=== PATIENT | male | born 1975 | race Caucasian/White ===

== ENCOUNTER 2023-11-08 22:27 | Inpatient (IN) ==
--- OUTSIDE RECORDS SUMMARY | 2023-11-08 22:30 | External Medical Summary | Summary of Care ---
Author Name Unknown Organization [facility] Address [address] [place] [address] Phone [phone] Care Team Providers Care Chip Drier Name Role Phone Ricki Loya MD Primary Care Provider + [phone] Reason for Visit * Reason Comments eRx-Medication Refill Encounter Details Date Type Department Care Team (Late st Contact Info) Description 10/06/2023 Refill Family Medicine [address] [id number] Ricki Loya MD [address] [place] [address] [place] [id number] Moderate persistent asthma without complication Allergies Active Allergy Reactions Criticality Noted Date Comments Tamsulosin Hcl 11/12/2016 Dizziness, headache,itching documented as of this encounter (statuses as of 10/08/2023) Medications Medication Sig Dispensed Refills Start Date End Date Status Albuterol Sulfate HFA 108 (90 Base) MCG/ACT Inhalation Aerosol SolutionIndications :Moderate persistent asthma without complication Inhale 2 Puffs by mouth every 4 hours as needed for Wheezing. 18 g 5 09/12/2022 Active LORazepam 1 MG Oral Tablet (Ativan) Take one tablet by mouth thirty minutes prior to MRI. 1 Tablet 0 03/12/2023 Active Symbicort 160-4.5 MCG/ACT Inhalation Aerosol (Budesonide-Formote rol)Indications:Mod erate persistent asthma without complication inhale 2 puffs by mouth in the morning and before bedtime. 10.2 g 5 10/08/2023 Active Symbicort 160-4.5 MCG/ACT Inhalation Aerosol (Budesonide-Formote rol)Indications:Mod erate persistent asthma without complication INHALE TWO PUFFS BY MOUTH IN THE MORNING and before bedtime 10.2 g 5 04/11/2023 10/08/2023 Discontinued Hospital, Clinic, or Other Facility Administered Medication Ordered Dose Route Frequency Start Date End Date Status albuterol sulfate (PROVENTIL) (2.5 MG/3ML) 0.083% inhalation solution 2.5 mgIndications:Moderate persistent asthma without complication 2.5 mg NEBULIZER Q4H PRN 09/15/2017 Active documented as of this encounter (statuses as of 10/08/2023) Active Problems Problem Noted Date Diagnosed Date Tobacco use disorder 09/07/2020 Moderate persistent asthma without complication 03/19/2016 BPH without obstruction/lower urinary tract symp toms documented as of this encounter (statuses as of 10/08/2023) Resolved Problems Problem Noted Date Diagnosed Date Resolved Date Moderate persistent asthma 0 03/19/2016 documented as of this encounter (statuses as of 10/08/2023) Immunizations Name Administration Dates Next Due TDAP (age 10 and older)(Boostrix) 12/04/2015 documented as of this encounter Social History Tobacco Use Types Packs/Day Years Used Date Smoking Tobacco: Every Day Cigarettes 1 32.7 Started: 1991 Smokeless Tobacco: Never Comments:Has cut back to 1/4 to 1/2 ppd Alcohol Use Standard Drinks/Week Comments No 0 (1 standard drink = 0.6 oz pur e alcohol) PHQ-2 Answer Date Recorded PHQ-2 Score -1 04/24/2020 Sex and Gender Information Value Date Recorded Sex Assigned at Not on file Gender Identity Not on file Sexual Orientation Not on file Job Start Date Occupation Industry Not on file Not on file Not on file documented as of this encounter Miscellaneous Notes * Telephone Encounter - Dino Zuleta RPh - 10/08/2023 10:06 AM ESTSigned Prescriptions: Disp Refills Symbicort 160-4.5 MCG/ACT Inhalation Aeros*10.2 g 5 Sig: inhale2 puffs by mouth in the morning and before bedtime.Authorizing Provider: RICKI LOYA User: DINO ZULETA documented in this encounter Plan of Treatment Health Maintenance Due Date Last Done Comments Pneumococcal Vaccine: Pediatrics (0 to 5 Years) and At-Risk Patients (6 to 64 Years) (1 of 2 - PCV) 1981 Hepatitis B (1 of 3 - 19+ 3-dose series) 1994 Cologuard 02/04/2020 Colonoscopy 02/04/2020 Colorectal Cancer Screening 02/04/2020 Fecal Occult Blood Test 02/04/2020 Sigmoidoscopy 02/04/2020 Depression Screening 08/27/2020 08/27/2019 DISCUSS TOBACCO CESSATION (REFER TO SMARTSET #3291) 09/07/2021 09/07/2020 COVID-19 Vaccine (1 - 2022-2 4 season) 2023 Influenza Vaccine (FLU shot) (#1) 2023 DTaP,Tdap,and Td Vaccines (2 - Td or Tdap) 12/03/2025 12/04/2015 Lipid Panel 09/11/2026 09/11/2021, 07/05/2016 GARDASIL-HPV IMMUNIZATION SERIES Aged Out No longer eligible b ased on patient's age to complete this topic MENINGOCOCCAL (MENACTRA/MENVEO) Aged Out No longer eligible b ased on patient's age to complete this topic documented as of this encounter Medical Devices Not on filedocumented as of this encounter Visit Diagnoses Diagnosis Moderate persistent asthma without complication Unspecified asthma documented in this encounter Care Teams Chip Drier Relationship Specialty Start Date End Date Ricki Loya MD [address] [place] [address] MARTY Carranza [phone] PCP - General Family Medicine 04/13/15 documented as of this encounter
--- NOTE | 2023-11-08 23:04 | Emergency Department Note ---
History of Present Illness General Chief complaint: Shortness of Breath/Dyspnea Stated complaint: TROUBLE BREATHING X9 DAYS Time Seen by Provider: 11/08/23 22:37 History of Present Illness Maximum Pain Intensity: 8 This is a 48-year-old male presenting to the emergency department for evaluation of breathing difficulty. Patient states that he has had a cough and shortness of breath for the past 8 or 9 days. He may have had a fever early on but nothing recently. He is having a large amount of left-sided chest wall pain. Patient has a history of asthma and uses tobacco products. His discomfort is rated 8/10. Patient does not typically go to the doctor. He does have some discomfort going into his left flank. No difficulty using the bathroom. Home Medications Medication Instructions Recorded Confirmed Type acetaminophen 500 mg tablet 1,000 mg PO DIRECTED PRN 11/08/23 11/08/23 History (Tylenol Extra Strength) PAIN/FEVER albuterol sulfate 90 mcg/actuation 2 puff inhalation DIRECTED PRN 11/08/23 11/08/23 History aerosol inhaler Shortness Of Breath Or Wheezing budesonide-formoterol HFA 160 1 inh inhalation QID 11/08/23 11/08/23 History mcg-4.5 mcg/actuation aerosol inhaler (Symbicort) ibuprofen 200 mg tablet (Advil) 600 mg PO DIRECTED PRN 11/08/23 11/08/23 History PAIN/FEVER Allergies Allergy/AdvReac Type Severity Reaction Status Date / Time No Known Allergies Allergy Verified 11/08/23 23:12 Past Med/Surg History Medical History Asthma Surgical History No pertinent past surgical history Social History Smoking Status: Heavy tobacco smoker Tobacco Type: Cigarettes Hx Alcohol Use: No Hx Substance Use: Yes (occasional social MJ use) Preferred Language: Belarusian Communication Ability: Effective Cash Application Clerk Required: No Beliefs That Will Affect Care: None Current Living Situation: Alone Current Living Situation Comment: House, 0 KEILA Feels Safe at Home: Yes Assistive Devices: None Review of Systems A total of 10 systems reviewed and were otherwise negative Physical Exam Vital Signs Vital Signs - 24 hr 11/08/23 22:31 11/08/23 22:39 11/08/23 23:00 Temperature 37.2 C Temperature Source Temporal Artery Scan Pulse Rate 101 H 94 H Respiratory Rate 18 20 Respiratory Effort / Characteristics Non-Labored Spontaneous Non-Labored Respiratory Depth Normal Normal Respiratory Pattern Regular Regular Blood Pressure 114/68 106/56 L Blood Pressure Mean 83 72 Pulse Oximetry 95 97 Oxygen Delivery Method Room Air Sepsis Recent Fever Within 48 Hours No Sepsis New/Unexplained Change in Mental Status N/A Sepsis Action Taken by Nursing No Action Required 11/08/23 23:02 11/08/23 23:23 11/09/23 00:23 Temperature Temperature Source Pulse Rate 98 H Respiratory Rate Respiratory Effort / Characteristics Respiratory Depth Respiratory Pattern Blood Pressure Blood Pressure Mean Pulse Oximetry 96 Oxygen Delivery Method Room Air Room Air Sepsis Recent Fever Within 48 Hours Sepsis New/Unexplained Change in Mental Status Sepsis Action Taken by Nursing 11/09/23 01:00 11/09/23 01:04 Temperature Temperature Source Pulse Rate 84 Respiratory Rate 18 Respiratory Effort / Characteristics Non-Labored Respiratory Depth Normal Respiratory Pattern Blood Pressure 121/74 Blood Pressure Mean 89 Pulse Oximetry 95 Oxygen Delivery Method Sepsis Recent Fever Within 48 Hours Sepsis New/Unexplained Change in Mental Status Sepsis Action Taken by Nursing VITALS: Vitals are noted on the nurse's note and reviewed by myself. Vital signs stable. GENERAL: Well-developed, well-nourished, white male, who is in no acute distress and resting comfortably. Patient is cooperative with the examination. HEAD: Normocephalic atraumatic. EARS: External ear normal. External auditory canals clear, tympanic membranes pearly sandoval without erythema or effusion bilaterally. EYES: Pupils equal round and reactive to light and accommodation. Conjunctivae without injection, sclerae without icterus. Extraocular movements intact. NOSE: Patent, turbinates without inflammation or discharge. MOUTH: Mucous membranes moist. Tonsils are not enlarged. Pharynx without erythema, blood, or exudate. Uvula midline. Airway patent. NECK: Supple without nuchal rigidity. No lymphadenopathy. No thyromegaly. Cervical spine is nontender. HEART: Regular rate and rhythm without murmurs gallops or rubs. LUNGS: Clear to auscultation bilaterally without wheezes, rales or rhonchi. No retractions or accessory muscle use. CHEST WALL: Reproducible tenderness along the left lateral chest wall. No appreciable rash. No flail segment. ABDOMEN: Positive normal bowel sounds x 4. Soft, nontender, without masses or organomegaly. No guarding or rebound tenderness. MUSCULOSKELETAL: No muscle atrophy, erythema, or edema noted. Full range of motion in all extremities. Course Administered Medications Doxycycline Hyclate (Doxycycline Hyclate 100 Mg Cap) 100 mg PO BID KELSEA Stop: 11/16/23 20:59 Last Admin: 11/09/23 21:12 Dose: 100 mg Documented By: W Fluticasone/Vilanterol (Fluticasone/Vilanterol 100/25mcg 14 Puffs/Inhaler) 1 puffs INH DAILY KELSEA Stop: 12/09/23 08:59 Last Admin: 11/09/23 10:08 Dose: 1 puffs Documented By: JAYLAN Piperacillin Sod/Tazobactam (Sod 4.5 gm/ Dextrose) 100 mls @ 25 mls/hr IV Q8H KELSEA; Protocol Stop: 11/16/23 05:59 Last Admin: 11/09/23 21:11 Dose: 25 mls/hr Documented By: Infusion: 11/09/23 17:35 Dose: Infused Documented By: JAYLAN(2) Admin: 11/09/23 12:57 Dose: 25 mls/hr Documented By: Infusion: 11/09/23 10:29 Dose: Infused Documented By: Admin: 11/09/23 06:21 Dose: 25 mls/hr Documented By: ANABEL Alteplase, Recombinant 10 mg/ (Syringe) 60 mls @ 0.0006 mls/min IPL Q12H KELSEA; Protocol Stop: 11/12/23 07:59 Last Admin: 11/09/23 20:40 Dose: 0.0006 mls/min Documented By: YESY Co-signed By: DIA Admin: 11/09/23 10:10 Dose: 0.0006 mls/min Documented By: JAYLAN Co-signed By: ALEJANDRA Dornase Shai 5 ml/ Syringe 30 mls @ 0.0006 mls/min IPL Q12H KELSEA; Protocol Stop: 11/12/23 08:59 Last Admin: 11/09/23 08:45 Dose: 0.0006 mls/min Documented By: JAYLAN Morphine Sulfate (Morphine Sulfate 2 Mg/Ml Carp) 3 mg IV Q4H PRN PRN Reason: Severe Pain (Scale 7, 8, 9,10) Stop: 11/23/23 11:48 Last Admin: 11/09/23 20:13 Dose: 3 mg Documented By: YESY Oxycodone HCl (Oxycodone Hcl Ir 5 Mg Tab (Immediate Release)) 5 mg PO Q4H PRN PRN Reason: moderate to severe pain Stop: 11/23/23 11:48 Last Admin: 11/09/23 16:57 Dose: 5 mg Documented By: [place] Admin: 11/09/23 12:04 Dose: 5 mg Documented By: JAYLAN Tramadol HCl (Tramadol Hcl 50 Mg Tablet) 50 mg PO Q4H PRN PRN Reason: Moderate Pain (Scale 4, 5, 6) Stop: 12/09/23 11:47 Last Admin: 11/09/23 16:57 Dose: 50 mg Documented By: [place] Discontinued Medications Enoxaparin Sodium (Enoxaparin Inj 30 Mg/0.3 Ml Syr) [facility] [place] Stop: 12/09/23 08:59 Last Admin: 11/09/23 10:09 Dose: 30 mg Documented By: JAYLAN Vancomycin HCl 1,000 mg/ (Sodium Chloride) 520 mls @ 200 mls/hr IV NOW ONE Stop: 11/09/23 02:21 Last Infusion: 11/09/23 04:12 Dose: Infused Documented By: Infusion: 11/09/23 02:18 Dose: 0 mls/hr Documented By: Admin: 11/09/23 01:32 Dose: 200 mls/hr Documented By: GAYLA Piperacillin Sod/Tazobactam Sod (Zosyn) 4.5 gm in 100 mls @ 200 mls/hr IV NOW ONE Stop: 11/09/23 00:15 Last Infusion: 11/09/23 01:40 Dose: Infused Documented By: Admin: 11/09/23 00:58 Dose: 200 mls/hr Documented By: GAYLA Sodium Chloride (Nss) 1,000 mls @ 999 mls/hr IV .Q1H1M [facility] Stop: 11/09/23 00:45 Last Infusion: 11/09/23 02:19 Dose: Infused Documented By: Admin: 11/09/23 01:01 Dose: 999 mls/hr Documented By: GAYLA Acetaminophen (Ofirmev) 1,000 mg in 100 mls @ 400 mls/hr IV NOW STA Stop: 11/09/23 01:09 Last Infusion: 11/09/23 02:17 Dose: Infused Documented By: Admin: 11/09/23 01:38 Dose: 400 mls/hr Documented By: GAYLA Doxycycline Hyclate 100 mg/ (Dextrose) 100 mls @ 50 mls/hr IV NOW STA Stop: 11/09/23 03:34 Last Infusion: 11/09/23 05:26 Dose: Infused Documented By: Admin: 11/09/23 02:20 Dose: 50 mls/hr Documented By: GAYLA Potassium Chloride/Sodium Chloride (Normal Saline W/20 Meq Kcl) 20 meq in 1,000 mls @ 60 mls/hr IV .[id number] STA; Protocol Stop: 11/09/23 18:47 Last Infusion: 11/09/23 17:36 Dose: Infused Documented By: JAYLAN(2) Admin: 11/09/23 02:49 Dose: 60 mls/hr Documented By: GAYLA Ioversol (Optiray 320 125ml) 119 ml IV ONCE ONE Stop: 11/09/23 00:40 Last Admin: 11/09/23 00:39 Dose: 119 ml Documented By: TUNDE Ipratropium [place] (Ipratropium [place] Neb Soln 0.02% 0.5mg/2.5ml Vial) 0.5 mg INH NOW STA Stop: 11/09/23 02:07 Last Admin: 11/09/23 03:24 Dose: 0.5 mg Documented By: DEBI Ketorolac Tromethamine (Ketorolac 30 Mg/Ml Vial) Confirm Administered Dose 30 mg .ROUTE .STK-MED ONE Stop: 11/09/23 07:00 Last Admin: 11/09/23 07:05 Dose: 30 mg Documented By: ALEJANDRA Levalbuterol HCl (Levalbuterol 1.25 Mg/3 Ml Neb) 1.25 mg NEB NOW STA Stop: 11/09/23 02:07 Last Admin: 11/09/23 03:24 Dose: 1.25 mg Documented By: DEBI Morphine Sulfate (Morphine Sulfate 2 Mg/Ml Carp) Confirm Administered Dose 2 mg .ROUTE .STK-MED ONE Stop: 11/09/23 07:17 Last Admin: 11/09/23 07:30 Dose: Not Given Documented By: MES Morphine Sulfate (Morphine Sulfate 2 Mg/Ml Carp) 2 mg IV NOW Stop: 11/09/23 07:29 Last Admin: 11/09/23 07:30 Dose: 2 mg Documented By: MES Morphine Sulfate (Morphine Sulfate 2 Mg/Ml Carp) 2 mg IV Q6H PRN PRN Reason: Severe Pain (Scale 7, 8, 9,10) Stop: 11/23/23 11:48 Last Admin: 11/09/23 16:58 Dose: 2 mg Documented By: [place] Admin: 11/09/23 12:00 Dose: 2 mg Documented By: JAYLAN Morphine Sulfate (Morphine Sulfate 2 Mg/Ml Carp) Confirm Administered Dose 2 mg .ROUTE .STK-MED ONE Stop: 11/09/23 11:56 Last Admin: 11/09/23 12:00 Dose: Not Given Documented By: ITZELN Morphine Sulfate (Morphine Sulfate 2 Mg/Ml Carp) 2 mg IV NOW Stop: 11/09/23 13:34 Last Admin: 11/09/23 13:44 Dose: 2 mg Documented By: ITZELN Medical Decision Making Differential Diagnosis Differential diagnosis includes, but is not limited to: Myocardial infarction, dysrhythmia, pericarditis, pneumothorax, aortic aneurysm/dissection, DVT/PE, anxiety, GERD, PUD, electrolyte imbalance, thyroid disorder, pneumonia, bronchitis, pancreatitis, and others Laboratory Data 11/09/23 17:30 11/09/23 05:25 Lab Results 11/08/23 11/08/23 11/09/23 Range/Units 23:00 23:05 00:16 WBC 29.13 H (4.8-10.8) K/ul RBC 4.18 L (4.70-6.10) M/uL Hgb 12.6 L (14.0-18.0) g/dl Hct 36.3 L (42.0-52.0) % MCV 86.8 (80.0-100.0) fL MCH 30.1 (25.0-34.0) pg MCHC 34.7 (32.0-36.0) g/dL RDW Std Deviation 42.3 (36.4-46.3) fL RDW Coeff of Jorje 13.4 (11.5-14.5) % Plt Count 501 H (130-400) K/uL MPV 8.6 L (9.4-12.4) fL Immature Gran % (Auto) 2.0 % Neut % (Auto) 86.8 % Lymph % (Auto) 2.1 % Wilkes % (Auto) 4.9 % Eos % (Auto) 3.8 % Baso % (Auto) 0.4 % Neut # (Auto) 25.31 H (1.40-6.50) K/uL Lymph # (Auto) 0.60 L (1.20-3.40) K/uL Wilkes # (Auto) 1.42 H (0.11-0.59) K/uL Eos # (Auto) 1.10 H (0.00-0.50) K/uL Baso # (Auto) 0.11 (0.00-0.20) K/uL Immature Gran # (Auto) 0.59 H (0.01-0.20) K/uL Sodium 135 L (136-145) mmol/L Potassium 3.7 (3.5-5.1) mmol/L Chloride 102 (98-107) mmol/L Carbon Dioxide 23 (21-32) mmol/L Anion Gap 10 (3-11) BUN 16 (6-23) mg/dl Creatinine 0.78 (0.6-1.4) mg/dl Est Cr Clr Drug Dosing 90.3 ml/min Est GFR ( Amer) 123.7 ml/min Est GFR (Non-Af Amer) 106.7 ml/min BUN/Creatinine Ratio 20.5 H (10-20) Glucose 166 H (70-99(Fasting)) mg/dl Estimat Average Glucose 128 mg/dl Hemoglobin A1c 6.1 H (4.5-5.6) % Lactate 1.8 (0.4-2.0) mmol/L Calcium 8.3 L (8.6-10.3) mg/dl Magnesium 2.0 (1.7-2.4) mg/dl Total Bilirubin 0.3 (0.2-1.0) mg/dl AST 7 L (13-39) U/L ALT 12 (7-52) U/L Alkaline Phosphatase 69 (34-104) U/L Troponin I High Sens 15.7 (0-20) pg/ml Total Protein 6.1 (6.0-8.3) gm/dl Albumin 3.0 L (3.4-5.0) gm/dl Globulin 3.1 (2.5-4.0) gm/dl Albumin/Globulin Ratio 1.0 (0.9-2) Lipase 12 (11-82) U/L Procalcitonin 2.68 H (0-0.5) ng/ml Urine Color Urine Appearance (Clear) Urine pH (4.5-7.5) Ur Specific [place] (1.000-1.030) Urine Protein (Negative) Urine Glucose (UA) (Negative) Urine Ketones (Negative) Urine Blood (Negative) Urine Nitrite (Negative) Urine Bilirubin (Negative) Urine Urobilinogen (Negative) Ur Leukocyte Esterase (Negative) Urine WBC (Auto) (0-5) /hpf Urine RBC (Auto) (0-4) /hpf U Hyaline Cast (Auto) (0-5) /lpf U Epithel Cells (Auto) (0-5) /lpf Urine Bacteria (Auto) (Negative) Ur Renal Epithelial Cell Adenovirus (PCR) Not Detected (NotDetected) B. pertussis DNA (PCR) Not Detected (NotDetected) B.parapertussis DNA PCR Not Detected (NotDetected) C. pneumoniae DNA (PCR) Not Detected (NotDetected) Coronavirus OC43 (PCR) Not Detected (NotDetected) Coronavirus HKU1 (PCR) Not Detected (NotDetected) Coronavirus 229E (PCR) Not Detected (NotDetected) SARS-CoV-2 (PCR) Not Detected (NotDetected) Coronavirus NL63 (PCR) Not Detected (NotDetected) Human Metapneumovir PCR Not Detected (NotDetected) Influenza Type A (PCR) Not Detected (NotDetected) Influenza Type B (PCR) Not Detected (NotDetected) M. pneumoniae (PCR) Not Detected (NotDetected) Parainfluenza 1 (PCR) Not Detected (NotDetected) Parainfluenza 2 (PCR) Not Detected (NotDetected) Parainfluenza 3 (PCR) Not Detected (NotDetected) Parainfluenza 4 (PCR) Not Detected (NotDetected) RSV (PCR) Not Detected (NotDetected) Entero/Rhino (PCR) Not Detected (NotDetected) 11/09/23 Range/Units 00:41 WBC (4.8-10.8) K/ul RBC (4.70-6.10) M/uL Hgb (14.0-18.0) g/dl Hct (42.0-52.0) % MCV (80.0-100.0) fL MCH (25.0-34.0) pg MCHC (32.0-36.0) g/dL RDW Std Deviation (36.4-46.3) fL RDW Coeff of Jorje (11.5-14.5) % Plt Count (130-400) K/uL MPV (9.4-12.4) fL Immature Gran % (Auto) % Neut % (Auto) % Lymph % (Auto) % Wilkes % (Auto) % Eos % (Auto) % Baso % (Auto) % Neut # (Auto) (1.40-6.50) K/uL Lymph # (Auto) (1.20-3.40) K/uL Wilkes # (Auto) (0.11-0.59) K/uL Eos # (Auto) (0.00-0.50) K/uL Baso # (Auto) (0.00-0.20) K/uL Immature Gran # (Auto) (0.01-0.20) K/uL Sodium (136-145) mmol/L Potassium (3.5-5.1) mmol/L Chloride (98-107) mmol/L Carbon Dioxide (21-32) mmol/L Anion Gap (3-11) BUN (6-23) mg/dl Creatinine (0.6-1.4) mg/dl Est Cr Clr Drug Dosing ml/min Est GFR ( Amer) ml/min Est GFR (Non-Af Amer) ml/min BUN/Creatinine Ratio (10-20) Glucose (70-99(Fasting)) mg/dl Estimat Average Glucose mg/dl Hemoglobin A1c (4.5-5.6) % Lactate (0.4-2.0) mmol/L Calcium (8.6-10.3) mg/dl Magnesium (1.7-2.4) mg/dl Total Bilirubin (0.2-1.0) mg/dl AST (13-39) U/L ALT (7-52) U/L Alkaline Phosphatase (34-104) U/L Troponin I High Sens (0-20) pg/ml Total Protein (6.0-8.3) gm/dl Albumin (3.4-5.0) gm/dl Globulin (2.5-4.0) gm/dl Albumin/Globulin Ratio (0.9-2) Lipase (11-82) U/L Procalcitonin (0-0.5) ng/ml Urine Color Dark Yellow Urine Appearance Clear (Clear) Urine pH 5.5 (4.5-7.5) Ur Specific [place] > 1.045 H (1.000-1.030) Urine Protein 1+ H (Negative) Urine Glucose (UA) Negative (Negative) Urine Ketones Negative (Negative) Urine Blood Negative (Negative) Urine Nitrite Negative (Negative) Urine Bilirubin Negative (Negative) Urine Urobilinogen Negative (Negative) Ur Leukocyte Esterase Negative (Negative) Urine WBC (Auto) 1-5 (0-5) /hpf Urine RBC (Auto) 5-10 H (0-4) /hpf U Hyaline Cast (Auto) 1-5 (0-5) /lpf U Epithel Cells (Auto) >30 H (0-5) /lpf Urine Bacteria (Auto) Negative (Negative) Ur Renal Epithelial Cell Not Reportable Adenovirus (PCR) (NotDetected) B. pertussis DNA (PCR) (NotDetected) B.parapertussis DNA PCR (NotDetected) C. pneumoniae DNA (PCR) (NotDetected) Coronavirus OC43 (PCR) (NotDetected) Coronavirus HKU1 (PCR) (NotDetected) Coronavirus 229E (PCR) (NotDetected) SARS-CoV-2 (PCR) (NotDetected) Coronavirus NL63 (PCR) (NotDetected) Human Metapneumovir PCR (NotDetected) Influenza Type A (PCR) (NotDetected) Influenza Type B (PCR) (NotDetected) M. pneumoniae (PCR) (NotDetected) Parainfluenza 1 (PCR) (NotDetected) Parainfluenza 2 (PCR) (NotDetected) Parainfluenza 3 (PCR) (NotDetected) Parainfluenza 4 (PCR) (NotDetected) RSV (PCR) (NotDetected) Entero/Rhino (PCR) (NotDetected) Imaging Data Radiologist's Impression: Abdomen/Pelvis CT 11/08/23 22:51 Exam(s): CT ABDOMEN + PELVIS With Contrast IV Amt: 119 cc's optiray 320 EXAM: CT Abdomen and Pelvis With Intravenous Contrast CLINICAL HISTORY: Reason for exam: SOB, left flank pain. TECHNIQUE: Axial computed tomography images of the abdomen and pelvis with intravenous contrast. CTDI is 32.04 mGy and DLP is 819.51 mGy-cm. Automated exposure control was utilized for the study. A dose lowering technique was utilized adhering to the principles of ALARA. CONTRAST: Patient received 119 cc's optiray 320 of IV contrast COMPARISON: None. FINDINGS: Lung bases: Left lower lobe consolidation suggestive of atelectasis versus residual infiltrate. Trace right lower lobe atelectasis. Pleural space: Loculated left-sided pleural effusions with small irregular pockets of fluid within the left pleural base and peripheral enhancement, combination of findings concerning for empyema. Cannot exclude neoplasm. Heart: Unremarkable. No cardiomegaly. No significant pericardial effusion. Normal cardiac size. ABDOMEN: Liver: Low-attenuation structure within the anterior aspect of the left liver lobe measuring 9.7 mm, likely liver cyst. Otherwise normal liver. Gallbladder and bile ducts: Unremarkable. No calcified stones. No ductal dilation. Pancreas: Unremarkable. No mass. No ductal dilation. Spleen: Unremarkable. No splenomegaly. Adrenals: Unremarkable. No mass. Kidneys and ureters: Unremarkable. No solid mass. No hydronephrosis. Stomach and bowel: Several loops of small bowel with mild thickening of the wall, more so along the left upper abdomen. There is fluid within the colon with mild thickening of the wall to the distal sigmoid and descending colon, combination of findings which may indicate enteritis/enterocolitis. No obstruction. PELVIS: Appendix: Nonvisualized appendix with no focal inflammation by the cecum to suggest acute appendicitis. Bladder: Unremarkable. No mass. Reproductive: Unremarkable as visualized. ABDOMEN and PELVIS: Intraperitoneal space: Unremarkable. No free air. No significant fluid collection. Bones/joints: Degenerative disease at L4-L5 with anterolisthesis of L4 on L5 (10 mm) along with bilateral pars defect of L4. Minor spondylosis of the remainder of the spine. No acute fracture. No dislocation. Soft tissues: Unremarkable. Vasculature: Unremarkable. No abdominal aortic aneurysm. Lymph nodes: Unremarkable. No enlarged lymph nodes. IMPRESSION: 1. Loculated left-sided pleural effusions as described which may indicate empyema, differential diagnosis including neoplasm. Further evaluation with CT chest recommended if clinically indicated. 2. Cannot exclude mild enteritis/enterocolitis with no bowel obstruction. 3. 9.7 mm liver cyst, otherwise unremarkable abdominal viscera. Electronically signed by: Meghann Mcnair MD 11/09/23 01:48 AM Chest CTA 11/08/23 22:51 Exam(s): CTA CHEST IV Amt: 119 cc's of optiray 320 EXAM: CT Angiography Chest With Intravenous Contrast CLINICAL HISTORY: Reason for exam: SOB, left flank pain. TECHNIQUE: Axial computed tomographic angiography images of the chest with intravenous contrast. CTDI is 12.2 mGy and DLP is 820 mGy-cm. Automated exposure control was utilized for the study. A dose lowering technique was utilized adhering to the principles of ALARA. MIP reconstructed images were created and reviewed. COMPARISON: Chest x-ray from November 08, 2023 FINDINGS: Pulmonary arteries: The pulmonary arterial tree is well opacified with contrast. No pulmonary embolism is identified. Aorta: The thoracic aorta is nondilated. There is no aneurysm or dissection. Lungs: There is bronchial wall thickening centrally in both lungs as well as a small amount of bronchial plugging extending to the left lower lobe suggesting bronchitis and pneumonia. No mass. Pleural space: Multiloculated left pleural effusion measuring 3-4 cm thick over the mid to lower left hemithorax. There is consolidation of the left lower lobe and portions of the lingula consistent with atelectasis or pneumonia. Heart: Unremarkable. No cardiomegaly. No significant pericardial effusion. No evidence of RV dysfunction. Bones/joints: No acute fracture. No dislocation. Soft tissues: Unremarkable. Lymph nodes: Unremarkable. No enlarged lymph nodes. IMPRESSION: 1. Multiloculated left pleural effusion measuring 3-4 cm thick over the mid to lower left hemithorax. There is consolidation of the left lower lobe and portions of the lingula consistent with atelectasis or pneumonia. 2. There is bronchial wall thickening centrally in both lungs as well as a small amount of bronchial plugging extending to the left lower lobe suggesting bronchitis and pneumonia. 3. The thoracic aorta is nondilated. There is no aneurysm or dissection. 4. The pulmonary arterial tree is well opacified with contrast. No pulmonary embolism is identified. Electronically signed by: Will John MD 11/09/23 01:09 AM Chest X-Ray 11/08/23 22:51 XR chest 1V portable CLINICAL HISTORY: Chest pain, nonspecific TECHNIQUE: Single frontal radiograph of the chest was obtained. Comparison: Comparison is made to chest radiograph 04/17/2014 FINDINGS: No lines and tubes are seen. The cardiomediastinal silhouette is normal. The lungs are clear. Small left pleural effusion is seen. IMPRESSION: Small left pleural effusion. Of note, this was seen in prior CT abdomen pelvis and found to be loculated possibly representing malignant effusion versus empyema. ACT 112: Negative or not required by law. Electronically signed by: Je Gleason M.D. 11/09/2023 8:16 AM MDM Narrative Physical exam and history were performed. Nursing notes, EMR, and Medication List were personally reviewed. No social concerns were identified as barriers to patients care. Patient appears to have Shortness of breath bringing him to the ER. Patient does not typically follow with healthcare providers. He has a large amount of reproducible tenderness along the left side chest wall without obvious rash. IV access was established and labs were obtained. Blood cultures were performed. Bio fire gathered. An order was placed for continuous cardiac monitoring. The monitor shows a rate of 72 with normal sinus rhythm. Patient's blood work is as above and was reviewed. Blood work is very concerning for very high white blood cell count of 29,000. He has some mild anemia. Lactic acid is elevated and patient was given a fluid sepsis bolus. He was started empirically on vancomycin and Zosyn. His chest x-ray was concerning for a left lower lobe pneumonia. CT scans of the abdomen and chest were performed. CT scans confirm what appears to be pneumonia, possibly a loculated pneumonia, empyema, or possibly malignancy. Overall the patient does not appear well for discharge home. His remaining labs are somewhat reassuring and bio fire is negative. The case was discussed with the on-call hospitalist team who agreed to evaluate the patient here in the ER. Please see their dictation for further patient course, plan, and disposition. The chart was completed utilizing [employer] Voice Recognition Software. Grammatical errors, random word insertions, pronoun errors, and incomplete sentences are an occasional consequence of this system due to software limitations, ambient noise, and hardware issues. Any formal questions or concerns about the content, text, or information contained within the body of this dictation should be directly addressed to the provider for clarification. . Impression & Plan Acute pneumonia, Sepsis Discharge Plan Visit Data Chief Complaint: Shortness of Breath/Dyspnea Stated Complaint: TROUBLE BREATHING X9 DAYS ED Provider: Yuriy Jules ED Midlevel Provider: Antoni Valadez Discharge Problem: Acute pneumonia, Sepsis Patient Disposition: Admitted As Inpatient Discharge Instructions Interventions: ED Discharge Assessment Last Done: 11/09/23 03:15
[2023-11-08 23:35] LABS: Hematocrit (blood only) 36.3 % (42.0-52.0); Hemoglobin 12.6 g/dl (14.0-18.0); Mean Corpuscular Hemoglobin 30.1 pg (25.0-34.0); Mean Corpuscular Hgb Conc 34.7 g/dL (32.0-36.0); Mean Corpuscular Volume 86.8 fL (80.0-100.0); Mean Platelet Volume 8.6 fL (9.4-12.4); Platelet Count 501 K/uL (130-400); RDW Coefficient of Variation 13.4 % (11.5-14.5); RDW Standard Deviation 42.3 fL (36.4-46.3); Red Blood Count 4.18 M/uL (4.70-6.10); White Blood Count 29.13 K/ul (4.8-10.8)
[2023-11-08] MEDS ORDERED: VANCOMYCIN CONSULT ACTIVE PRN (23:46)
[2023-11-08 23:52] LABS: BUN Creatinine Ratio 20.5 (10-20); Bilirubin,Total 0.3 mg/dl (0.2-1.0); Calcium 8.3 mg/dl (8.6-10.3); Creatinine Clr Calc Pharmacy 90.3 ml/min; Est GFR (African American) 123.7 ml/min; Est GFR (Non-African American) 106.7 ml/min; Globulin 3.1 gm/dl (2.5-4.0); Potassium 3.7 mmol/L (3.5-5.1); Total Protein 6.1 gm/dl (6.0-8.3)
[2023-11-08 23:58] LABS: Troponin I High Sensitivity 15.7 pg/ml (0-20)
[2023-11-08 23:59] LABS: Basophils # (auto) 0.11 K/uL (0.00-0.20); Basophils % (auto) 0.4 %; Eosinophils % (auto) 3.8 %; Immature Granulocytes # (auto) 0.59 K/uL (0.01-0.20); Lymphocytes % (auto) 2.1 %; Monocytes # (auto) 1.42 K/uL (0.11-0.59); Monocytes % (auto) 4.9 %; Neutrophils # (auto) 25.31 K/uL (1.40-6.50); Neutrophils % (auto) 86.8 %
[2023-11-09 00:03] LABS: Adenovirus PCR Not Detected (NotDetected); Bordetella parapertussis PCR Not Detected (NotDetected); Bordetella pertussis PCR Not Detected (NotDetected); Chlamydia pneumoniae PCR Not Detected (NotDetected); Coronavirus 229E PCR Not Detected (NotDetected); Coronavirus CoV-2 (COVID19)PCR Not Detected (NotDetected); Coronavirus HKU1 PCR Not Detected (NotDetected); Coronavirus NL63 PCR Not Detected (NotDetected); Coronavirus OC43PCR Not Detected (NotDetected); Human Metapneumovirus PCR Not Detected (NotDetected); Influenza A PCR Not Detected (NotDetected); Influenza B PCR Not Detected (NotDetected); Mycoplasma pneumoniae PCR Not Detected (NotDetected); Parainfluenza Virus 1 PCR Not Detected (NotDetected); Parainfluenza Virus 2 PCR Not Detected (NotDetected); Parainfluenza Virus 3 PCR Not Detected (NotDetected); Parainfluenza Virus 4 PCR Not Detected (NotDetected); Respiratory Syncytial VirusPCR Not Detected (NotDetected); Rhinovirus/Enterovirus PCR Not Detected (NotDetected)
[2023-11-09] MEDS: OPTIRAY 320 125ml IV ONE (00:39)
[2023-11-09 00:54] LABS: Appearance Urine Clear (Clear); Bacteria Urine Automated Negative (Negative); Bilirubin Urine Negative (Negative); Blood Urine Negative (Negative); Color Urine Dark Yellow; Epithelial Cell Urine Auto >30 /lpf (0-5); Glucose Urine UA Negative (Negative); Ketones Urine Negative (Negative); Leukocyte Esterase Urine Negative (Negative); Nitrite Urine Negative (Negative); Protein Urine 1+ (Negative); Specific Gravity Urine > 1.045 (1.000-1.030); Urobilinogen Urine Negative (Negative); pH Urine 5.5 (4.5-7.5)
[2023-11-09] MEDS: PIPERACILLIN/TAZOBACTAM 4.5 GM/100 ML BAG IV ONE (00:58)
[2023-11-09] MEDS: SODIUM CHLORIDE 0.9% 1,000 ML IV SCH (01:01)
--- NOTE | 2023-11-09 01:10 | CT Scan Report ---
Exam(s): CTA CHEST IV Amt: 119 cc's of optiray 320 EXAM: CT Angiography Chest With Intravenous Contrast CLINICAL HISTORY: Reason for exam: SOB, left flank pain. TECHNIQUE: Axial computed tomographic angiography images of the chest with intravenous contrast. CTDI is 12.2 mGy and DLP is 820 mGy-cm. Automated exposure control was utilized for the study. A dose lowering technique was utilized adhering to the principles of ALARA. MIP reconstructed images were created and reviewed. COMPARISON: Chest x-ray from November 08, 2023 FINDINGS: Pulmonary arteries: The pulmonary arterial tree is well opacified with contrast. No pulmonary embolism is identified. Aorta: The thoracic aorta is nondilated. There is no aneurysm or dissection. Lungs: There is bronchial wall thickening centrally in both lungs as well as a small amount of bronchial plugging extending to the left lower lobe suggesting bronchitis and pneumonia. No mass. Pleural space: Multiloculated left pleural effusion measuring 3-4 cm thick over the mid to lower left hemithorax. There is consolidation of the left lower lobe and portions of the lingula consistent with atelectasis or pneumonia. Heart: Unremarkable. No cardiomegaly. No significant pericardial effusion. No evidence of RV dysfunction. Bones/joints: No acute fracture. No dislocation. Soft tissues: Unremarkable. Lymph nodes: Unremarkable. No enlarged lymph nodes. IMPRESSION: 1. Multiloculated left pleural effusion measuring 3-4 cm thick over the mid to lower left hemithorax. There is consolidation of the left lower lobe and portions of the lingula consistent with atelectasis or pneumonia. 2. There is bronchial wall thickening centrally in both lungs as well as a small amount of bronchial plugging extending to the left lower lobe suggesting bronchitis and pneumonia. 3. The thoracic aorta is nondilated. There is no aneurysm or dissection. 4. The pulmonary arterial tree is well opacified with contrast. No pulmonary embolism is identified. Electronically signed by: Will John MD 11/09/23 01:09 AM
[2023-11-09] MEDS: VANCOMYCIN HCL 1,000 MG in SODIUM CHLORIDE 0.9% 500 ML IV ONE (01:32)
[2023-11-09] MEDS: ACETAMINOPHEN 1,000 MG/100 ML VIAL IV STA (01:38)
--- NOTE | 2023-11-09 01:49 | CT Scan Report ---
Exam(s): CT ABDOMEN + PELVIS With Contrast IV Amt: 119 cc's optiray 320 EXAM: CT Abdomen and Pelvis With Intravenous Contrast CLINICAL HISTORY: Reason for exam: SOB, left flank pain. TECHNIQUE: Axial computed tomography images of the abdomen and pelvis with intravenous contrast. CTDI is 32.04 mGy and DLP is 819.51 mGy-cm. Automated exposure control was utilized for the study. A dose lowering technique was utilized adhering to the principles of ALARA. CONTRAST: Patient received 119 cc's optiray 320 of IV contrast COMPARISON: None. FINDINGS: Lung bases: Left lower lobe consolidation suggestive of atelectasis versus residual infiltrate. Trace right lower lobe atelectasis. Pleural space: Loculated left-sided pleural effusions with small irregular pockets of fluid within the left pleural base and peripheral enhancement, combination of findings concerning for empyema. Cannot exclude neoplasm. Heart: Unremarkable. No cardiomegaly. No significant pericardial effusion. Normal cardiac size. ABDOMEN: Liver: Low-attenuation structure within the anterior aspect of the left liver lobe measuring 9.7 mm, likely liver cyst. Otherwise normal liver. Gallbladder and bile ducts: Unremarkable. No calcified stones. No ductal dilation. Pancreas: Unremarkable. No mass. No ductal dilation. Spleen: Unremarkable. No splenomegaly. Adrenals: Unremarkable. No mass. Kidneys and ureters: Unremarkable. No solid mass. No hydronephrosis. Stomach and bowel: Several loops of small bowel with mild thickening of the wall, more so along the left upper abdomen. There is fluid within the colon with mild thickening of the wall to the distal sigmoid and descending colon, combination of findings which may indicate enteritis/enterocolitis. No obstruction. PELVIS: Appendix: Nonvisualized appendix with no focal inflammation by the cecum to suggest acute appendicitis. Bladder: Unremarkable. No mass. Reproductive: Unremarkable as visualized. ABDOMEN and PELVIS: Intraperitoneal space: Unremarkable. No free air. No significant fluid collection. Bones/joints: Degenerative disease at L4-L5 with anterolisthesis of L4 on L5 (10 mm) along with bilateral pars defect of L4. Minor spondylosis of the remainder of the spine. No acute fracture. No dislocation. Soft tissues: Unremarkable. Vasculature: Unremarkable. No abdominal aortic aneurysm. Lymph nodes: Unremarkable. No enlarged lymph nodes. IMPRESSION: 1. Loculated left-sided pleural effusions as described which may indicate empyema, differential diagnosis including neoplasm. Further evaluation with CT chest recommended if clinically indicated. 2. Cannot exclude mild enteritis/enterocolitis with no bowel obstruction. 3. 9.7 mm liver cyst, otherwise unremarkable abdominal viscera. Electronically signed by: Meghann Mcnair MD 11/09/23 01:48 AM
--- NOTE | 2023-11-09 02:08 | History & Physical Report ---
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 Lovenox subcu Full code Text document was generated using [employer] voice recognition software. It may contain grammatical or spelling errors. Kindly contact undersigned for clarification of any documentation item in question. History of Present Illness Chief Complaint: Shortness of breath, cough symptoms. Primary Care Provider: Ly Elias History obtained from patient and records. Medical history significant for bronchial asthma, chronic back pain, BPH, ongoing tobacco abuse. 1 week history of cough symptoms later productive of junky yellow sputum associated with shortness of breath and pleuritic left-sided chest pain. Possible sick contacts as per patient. 20 pound weight loss over 1 year which patient attributes to stress from divorce. Occasional coughing with water intake. Denies hemoptysis, abdominal pain, black/bloody stools, hematuria. Patient received Vanco and Zosyn at the ER. Medical History as above Surgical History : Mastoid surgery Family History : Asthma; negative lung cancer Personal/Social history : Half pack daily, no EtOH intake, [place]le[place] Allergies Allergy/AdvReac Type Severity Reaction Status Date / Time No Known Allergies Allergy Verified 11/08/23 23:12 Home Medications Medication Instructions Recorded Confirmed Type acetaminophen 500 mg tablet 1,000 mg PO DIRECTED PRN 11/08/23 11/08/23 History (Tylenol Extra Strength) PAIN/FEVER albuterol sulfate 90 mcg/actuation 2 puff inhalation DIRECTED PRN 11/08/23 11/08/23 History aerosol inhaler Shortness Of Breath Or Wheezing budesonide-formoterol HFA 160 1 inh inhalation QID 11/08/23 11/08/23 History mcg-4.5 mcg/actuation aerosol inhaler (Symbicort) ibuprofen 200 mg tablet (Advil) 600 mg PO DIRECTED PRN 11/08/23 11/08/23 History PAIN/FEVER Past Med/Surg History Medical History Asthma Surgical History No pertinent past surgical history Social History Smoking Status: Heavy tobacco smoker Tobacco Type: Cigarettes Hx Alcohol Use: No Hx Substance Use: Yes (occasional social MJ use) Preferred Language: [place]anian Communication Ability: Effective 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 Beliefs That Will Affect Care: None Current Living Situation: Alone Current Living Situation Comment: House, 0 [address] Other Information That Helps Us Care for You: No Feels Safe at Home: Yes Safety Concerns: Feels Safe At This Time Assistive Devices: None Review of Systems Review of Systems: As per HPI, all other systems reviewed and negative Physical Exam Physical Exam: GENERAL: Comfortable, looks older than stated age, no respiratory distress SKIN: Pallor, warm HEENT: Gaunt face, pale palpebral conjunctivae, no ptosis, dry buccal mucosa NECK : Supple, no tenderness CHEST : Decreased breath sounds, occasional expiratory wheezes, left chest tenderness HEART : RRR, no obvious murmurs ABDOMEN:no distention, nontender EXTREMITIES : No LE swelling/tenderness, no other conspicuous deformities noted NEUROLOGIC : Coherent, no facial asymmetry, no other gross focality Results & Data Results & Data Vital Signs (Past 12 Hours) Vital Signs Temp Pulse Resp BP Pulse Ox O2 Del Method 11/09/23 01:04 84 18 121/74 95 11/09/23 00:23 Room Air 11/08/23 23:23 96 Room Air 11/08/23 23:02 98 H 11/08/23 22:31 37.2 C 101 H 18 114/68 95 Room Air Laboratory Results Laboratory Results WBC 29.13 K/ul (4.8-10.8) H 11/08/23 23:05 RBC 4.18 M/uL (4.70-6.10) L 11/08/23 23:05 Hgb 12.6 g/dl (14.0-18.0) L 11/08/23 23:05 Hct 36.3 % (42.0-52.0) L 11/08/23 23:05 MCV 86.8 fL (80.0-100.0) 11/08/23 23:05 MCH 30.1 pg (25.0-34.0) 11/08/23 23:05 MCHC 34.7 g/dL (32.0-36.0) 11/08/23 23:05 RDW Std Deviation 42.3 fL (36.4-46.3) 11/08/23 23:05 RDW Coeff of Jorje 13.4 % (11.5-14.5) 11/08/23 23:05 Plt Count 501 K/uL (130-400) H 11/08/23 23:05 MPV 8.6 fL (9.4-12.4) L 11/08/23 23:05 Immature Gran % (Auto) 2.0 % 11/08/23 23:05 Neut % (Auto) 86.8 % 11/08/23 23:05 Lymph % (Auto) 2.1 % 11/08/23 23:05 [place] % (Auto) 4.9 % 11/08/23 23:05 Eos % (Auto) 3.8 % 11/08/23 23:05 Baso % (Auto) 0.4 % 11/08/23 23:05 Neut # (Auto) 25.31 K/uL (1.40-6.50) H 11/08/23 23:05 Lymph # (Auto) 0.60 K/uL (1.20-3.40) L 11/08/23 23:05 [place] # (Auto) 1.42 K/uL (0.11-0.59) H 11/08/23 23:05 Eos # (Auto) 1.10 K/uL (0.00-0.50) H 11/08/23 23:05 Baso # (Auto) 0.11 K/uL (0.00-0.20) 11/08/23 23:05 Immature Gran # (Auto) 0.59 K/uL (0.01-0.20) H 11/08/23 23:05 Sodium 135 mmol/L (136-145) L 11/08/23 23:05 Potassium 3.7 mmol/L (3.5-5.1) 11/08/23 23:05 Chloride 102 mmol/L (98-107) 11/08/23 23:05 Carbon Dioxide 23 mmol/L (21-32) 11/08/23 23:05 Anion Gap 10 (3-11) 11/08/23 23:05 BUN 16 mg/dl (6-23) 11/08/23 23:05 Creatinine 0.78 mg/dl (0.6-1.4) 11/08/23 23:05 Est Cr Clr Drug Dosing 90.3 ml/min 11/08/23 23:05 Est GFR ( Amer) 123.7 ml/min 11/08/23 23:05 Est GFR (Non-Af Amer) 106.7 ml/min 11/08/23 23:05 BUN/Creatinine Ratio 20.5 (10-20) H 11/08/23 23:05 Glucose 166 mg/dl (70-99(Fasting)) H 11/08/23 23:05 Lactate 1.8 mmol/L (0.4-2.0) 11/09/23 00:16 Calcium 8.3 mg/dl (8.6-10.3) L 11/08/23 23:05 Magnesium 2.0 mg/dl (1.7-2.4) 11/08/23 23:05 Total Bilirubin 0.3 mg/dl (0.2-1.0) 11/08/23 23:05 AST 7 U/L (13-39) L 11/08/23 23:05 ALT 12 U/L (7-52) 11/08/23 23:05 Alkaline Phosphatase 69 U/L (34-104) 11/08/23 23:05 Troponin I High Sens 15.7 pg/ml (0-20) 11/08/23 23:05 Total Protein 6.1 gm/dl (6.0-8.3) 11/08/23 23:05 Albumin 3.0 gm/dl (3.4-5.0) L 11/08/23 23:05 Globulin 3.1 gm/dl (2.5-4.0) 11/08/23 23:05 Albumin/Globulin Ratio 1.0 (0.9-2) 11/08/23 23:05 Lipase 12 U/L (11-82) 11/08/23 23:05 Procalcitonin 2.68 ng/ml (0-0.5) H 11/08/23 23:05 Urine Color Dark Yellow 11/09/23 00:41 Urine Appearance Clear (Clear) 11/09/23 00:41 Urine pH 5.5 (4.5-7.5) 11/09/23 00:41 Ur Specific [place] > 1.045 (1.000-1.030) H 11/09/23 00:41 Urine Protein 1+ (Negative) H 11/09/23 00:41 Urine Glucose (UA) Negative (Negative) 11/09/23 00:41 Urine Ketones Negative (Negative) 11/09/23 00:41 Urine Blood Negative (Negative) 11/09/23 00:41 Urine Nitrite Negative (Negative) 11/09/23 00:41 Urine Bilirubin Negative (Negative) 11/09/23 00:41 Urine Urobilinogen Negative (Negative) 11/09/23 00:41 Ur Leukocyte Esterase Negative (Negative) 11/09/23 00:41 Urine WBC (Auto) 1-5 /hpf (0-5) 11/09/23 00:41 Urine RBC (Auto) 5-10 /hpf (0-4) H 11/09/23 00:41 U Hyaline Cast (Auto) 1-5 /lpf (0-5) 11/09/23 00:41 U Epithel Cells (Auto) >30 /lpf (0-5) H 11/09/23 00:41 Urine Bacteria (Auto) Negative (Negative) 11/09/23 00:41 Ur Renal Epithelial Cell Not Reportable 11/09/23 00:41 Adenovirus (PCR) Not Detected (NotDetected) 11/08/23 23:00 B. pertussis DNA (PCR) Not Detected (NotDetected) 11/08/23 23:00 B.parapertussis DNA PCR Not Detected (NotDetected) 11/08/23 23:00 C. pneumoniae DNA (PCR) Not Detected (NotDetected) 11/08/23 23:00 Coronavirus OC43 (PCR) Not Detected (NotDetected) 11/08/23 23:00 Coronavirus HKU1 (PCR) Not Detected (NotDetected) 11/08/23 23:00 Coronavirus 229E (PCR) Not Detected (NotDetected) 11/08/23 23:00 SARS-CoV-2 (PCR) Not Detected (NotDetected) 11/08/23 23:00 Coronavirus NL63 (PCR) Not Detected (NotDetected) 11/08/23 23:00 Human Metapneumovir PCR Not Detected (NotDetected) 11/08/23 23:00 Influenza Type A (PCR) Not Detected (NotDetected) 11/08/23 23:00 Influenza Type B (PCR) Not Detected (NotDetected) 11/08/23 23:00 M. pneumoniae (PCR) Not Detected (NotDetected) 11/08/23 23:00 Parainfluenza 1 (PCR) Not Detected (NotDetected) 11/08/23 23:00 Parainfluenza 2 (PCR) Not Detected (NotDetected) 11/08/23 23:00 Parainfluenza 3 (PCR) Not Detected (NotDetected) 11/08/23 23:00 Parainfluenza 4 (PCR) Not Detected (NotDetected) 11/08/23 23:00 RSV (PCR) Not Detected (NotDetected) 11/08/23 23:00 Entero/Rhino (PCR) Not Detected (NotDetected) 11/08/23 23:00 Impressions Abdomen/Pelvis CT 11/08/23 22:51 Exam(s): CT ABDOMEN + PELVIS With Contrast IV Amt: 119 cc's optiray 320 EXAM: CT Abdomen and Pelvis With Intravenous Contrast CLINICAL HISTORY: Reason for exam: SOB, left flank pain. TECHNIQUE: Axial computed tomography images of the abdomen and pelvis with intravenous contrast. CTDI is 32.04 mGy and DLP is 819.51 mGy-cm. Automated exposure control was utilized for the study. A dose lowering technique was utilized adhering to the principles of ALARA. CONTRAST: Patient received 119 cc's optiray 320 of IV contrast COMPARISON: None. FINDINGS: Lung bases: Left lower lobe consolidation suggestive of atelectasis versus residual infiltrate. Trace right lower lobe atelectasis. Pleural space: Loculated left-sided pleural effusions with small irregular pockets of fluid within the left pleural base and peripheral enhancement, combination of findings concerning for empyema. Cannot exclude neoplasm. Heart: Unremarkable. No cardiomegaly. No significant pericardial effusion. Normal cardiac size. ABDOMEN: Liver: Low-attenuation structure within the anterior aspect of the left liver lobe measuring 9.7 mm, likely liver cyst. Otherwise normal liver. Gallbladder and bile ducts: Unremarkable. No calcified stones. No ductal dilation. Pancreas: Unremarkable. No mass. No ductal dilation. Spleen: Unremarkable. No splenomegaly. Adrenals: Unremarkable. No mass. Kidneys and ureters: Unremarkable. No solid mass. No hydronephrosis. Stomach and bowel: Several loops of small bowel with mild thickening of the wall, more so along the left upper abdomen. There is fluid within the colon with mild thickening of the wall to the distal sigmoid and descending colon, combination of findings which may indicate enteritis/enterocolitis. No obstruction. PELVIS: Appendix: Nonvisualized appendix with no focal inflammation by the cecum to suggest acute appendicitis. Bladder: Unremarkable. No mass. Reproductive: Unremarkable as visualized. ABDOMEN and PELVIS: Intraperitoneal space: Unremarkable. No free air. No significant fluid collection. Bones/joints: Degenerative disease at L4-L5 with anterolisthesis of L4 on L5 (10 mm) along with bilateral pars defect of L4. Minor spondylosis of the remainder of the spine. No acute fracture. No dislocation. Soft tissues: Unremarkable. Vasculature: Unremarkable. No abdominal aortic aneurysm. Lymph nodes: Unremarkable. No enlarged lymph nodes. IMPRESSION: 1. Loculated left-sided pleural effusions as described which may indicate empyema, differential diagnosis including neoplasm. Further evaluation with CT chest recommended if clinically indicated. 2. Cannot exclude mild enteritis/enterocolitis with no bowel obstruction. 3. 9.7 mm liver cyst, otherwise unremarkable abdominal viscera. Electronically signed by: Meghann Mcnair MD 11/09/23 01:48 AM Chest CTA 11/08/23 22:51 Exam(s): CTA CHEST IV Amt: 119 cc's of optiray 320 EXAM: CT Angiography Chest With Intravenous Contrast CLINICAL HISTORY: Reason for exam: SOB, left flank pain. TECHNIQUE: Axial computed tomographic angiography images of the chest with intravenous contrast. CTDI is 12.2 mGy and DLP is 820 mGy-cm. Automated exposure control was utilized for the study. A dose lowering technique was utilized adhering to the principles of ALARA. MIP reconstructed images were created and reviewed. COMPARISON: Chest x-ray from November 08, 2023 FINDINGS: Pulmonary arteries: The pulmonary arterial tree is well opacified with contrast. No pulmonary embolism is identified. Aorta: The thoracic aorta is nondilated. There is no aneurysm or dissection. Lungs: There is bronchial wall thickening centrally in both lungs as well as a small amount of bronchial plugging extending to the left lower lobe suggesting bronchitis and pneumonia. No mass. Pleural space: Multiloculated left pleural effusion measuring 3-4 cm thick over the mid to lower left hemithorax. There is consolidation of the left lower lobe and portions of the lingula consistent with atelectasis or pneumonia. Heart: Unremarkable. No cardiomegaly. No significant pericardial effusion. No evidence of RV dysfunction. Bones/joints: No acute fracture. No dislocation. Soft tissues: Unremarkable. Lymph nodes: Unremarkable. No enlarged lymph nodes. IMPRESSION: 1. Multiloculated left pleural effusion measuring 3-4 cm thick over the mid to lower left hemithorax. There is consolidation of the left lower lobe and portions of the lingula consistent with atelectasis or pneumonia. 2. There is bronchial wall thickening centrally in both lungs as well as a small amount of bronchial plugging extending to the left lower lobe suggesting bronchitis and pneumonia. 3. The thoracic aorta is nondilated. There is no aneurysm or dissection. 4. The pulmonary arterial tree is well opacified with contrast. No pulmonary embolism is identified. Electronically signed by: Will John MD 11/09/23 01:09 AM Diagnostic Findings EKG as per my interpretation :Rate 100, NSR, normal axis, no ischemia
[2023-11-09] MEDS ORDERED: PROMETHAZINE HCL 6.25 MG in SODIUM CHLORIDE 0.9% 50 ML IV PRN (02:12)
[2023-11-09] MEDS: DOXYCYCLINE HYCLATE 100 MG in DEXTROSE 5% MINI-B 100 ML IV STA (02:20)
[2023-11-09] MEDS: NSS + 20MEQ KCL 20 MEQ/1,000 ML BAG IV STA (02:49)
[2023-11-09] MEDS ORDERED: ACETAMINOPHEN 325 MG TAB PO PRN (03:14)
[2023-11-09] MEDS: IPRATROPIUM BROMIDE NEB SOLN 0.02% 0.5MG/2.5ML VIAL INH STA (03:24)
[2023-11-09] MEDS: LEVALBUTEROL 1.25 MG/3 ML NEB NEB STA (03:24)
[2023-11-09] MEDS: PIPERACILLIN/TAZOBACTAM 4.5 GM in DEXTROSE 5% MINI-B 100 ML IV SCH (06:21)
[2023-11-09 06:32] LABS: Hematocrit (blood only) 35.8 % (42.0-52.0); Hemoglobin 12.1 g/dl (14.0-18.0); Mean Corpuscular Hemoglobin 29.8 pg (25.0-34.0); Mean Corpuscular Hgb Conc 33.8 g/dL (32.0-36.0); Mean Corpuscular Volume 88.2 fL (80.0-100.0); Mean Platelet Volume 8.8 fL (9.4-12.4); Platelet Count 506 K/uL (130-400); RDW Coefficient of Variation 13.5 % (11.5-14.5); RDW Standard Deviation 43.9 fL (36.4-46.3); Red Blood Count 4.06 M/uL (4.70-6.10); Reticulocyte % 0.81 % (0.50-2.00)
[2023-11-09 06:39] LABS: Anion Gap 8 (3-11); Blood Urea Nitrogen 11 mg/dl (6-23); Carbon Dioxide 25 mmol/L (21-32); Chloride 103 mmol/L (98-107); Potassium 3.6 mmol/L (3.5-5.1); Sodium 136 mmol/L (136-145)
[2023-11-09 06:40] LABS: BUN Creatinine Ratio 16.9 (10-20); Calcium 8.2 mg/dl (8.6-10.3); Creatinine Clr Calc Pharmacy 108.1 ml/min; Est GFR (African American) 133.3 ml/min; Glucose 111 mg/dl (70-99(Fasting)); Iron < 10 mcg/dl (35-175); Transferrin 119 mg/dl (200-360)
[2023-11-09 06:54] LABS: Basophils # (auto) 0.12 K/uL (0.00-0.20); Basophils % (auto) 0.4 %; Dohle Bodies 1+; Echinocytes 1+; Eosinophils % (auto) 3.4 %; Immature Granulocytes # (auto) 1.18 K/uL (0.01-0.20); Lymphocytes # (auto) 0.78 K/uL (1.20-3.40); Lymphocytes % (auto) 2.6 %; Monocytes # (auto) 1.58 K/uL (0.11-0.59); Monocytes % (auto) 5.3 %; Neutrophils # (auto) 25.14 K/uL (1.40-6.50); Neutrophils % (auto) 84.3 %
[2023-11-09 07:00] LABS: Ferritin 852.7 ng/ml (8-388)
[2023-11-09] MEDS: KETOROLAC 30 MG/ML VIAL ONE (07:05)
[2023-11-09 07:06] LABS: Folate (Folic Acid),Ser orPlas 3.33 ng/ml (>5.38)
[2023-11-09 07:18] LABS: Estimated Average Glucose 128 mg/dl; Hemoglobin A1C 6.1 % (4.5-5.6)
[2023-11-09] MEDS: MoRPHine SULFATE 2 MG/ML CARP ONE ×2 (07:30→12:00)
[2023-11-09] MEDS: MoRPHine SULFATE 2 MG/ML CARP IV STA ×2 (07:30→13:44)
--- NOTE | 2023-11-09 07:51 | Pulmonary Consultation ---
Date of Consultation November 09, 2023 Assessment & Plan (1) Parapneumonic effusion: (2) Pneumonia: Plan Impression: 48-year-old male with asthma and history of tobacco abuse presenting with loculated probable parapneumonic effusion. Sampling and drainage is indicated. Recommendations: 1. Pneumonic effusion: Reviewed images independently and with the patient. Performed bedside ultrasound. Significant loculated pleural fluid is identified. Discussed options with patient to include transfer for surgical intervention versus placement of 14 [place]ayan pigtail catheter and intrapleural thrombolysis. The patient is agreeable to a pigtail catheter placement with initiation of mist 2 protocol. 2. Pneumonia: Continue antibiotics. Currently on Zosyn and doxycycline. Will await cultures and follow white blood cell count but anticipate we can likely de-escalate antibiotics in the next 24 hours. He does not have risk factors for Pseudomonas. Augmentin or Unasyn may be appropriate. 3. Would recommend dental/oral maxillary facial consultation for management of his poor dentition. This likely is the etiology of his infection and will be recurrent if his dental issues or not adequately addressed. 4. Continue pain management. Toradol can be used on an as-needed basis. Will continue to follow with you. Thanks for the opportunity of dissipating in the care of this patient. Feel free to contact us with questions or concerns History of Present Illness Attending Physician: Garo Summers MD History of Present Illness Asked by hospitalist to evaluate this patient with parapneumonic effusion which is complicated and loculated. History is obtained from discussion with patient as well as review the electronic medical record. Patient is a 48-year-old male with a [id number] of tobacco abuse who continues to smoke 1 pack/day. He has very poor dentition. He presented to the emergency room yesterday evening complaining of shortness of breath which has been going on for about 1 to 2 weeks. He had some subjective fevers. He had significant chest pain on the left side. He was evaluated with a chest x-ray which demonstrated an effusion. CT scan confirmed a loculated effusion on the left likely parapneumonic. The patient was treated with antibiotics in the form of Zosyn and doxycycline and pulmonary was consulted for additional management. Patient has no personal or family history of lung malignancy that he is aware of. He works as a [employer]ish[employer]urthy. He has very poor dentition and does not seek medical care on a regular basis. He has had some unintentional weight loss. He does not use oxygen. He does have a history of asthma and uses an albuterol inhaler on an as-needed basis as well as Symbicort but he is not reliably using these medications. Allergies Allergy/AdvReac Type Severity Reaction Status Date / Time No Known Allergies Allergy Verified 11/08/23 23:12 Home Medications Medication Instructions Recorded Confirmed Type acetaminophen 500 mg tablet 1,000 mg PO DIRECTED PRN 11/08/23 11/08/23 History (Tylenol Extra Strength) PAIN/FEVER albuterol sulfate 90 mcg/actuation 2 puff inhalation DIRECTED PRN 11/08/23 11/08/23 History aerosol inhaler Shortness Of Breath Or Wheezing budesonide-formoterol HFA 160 1 inh inhalation QID 11/08/23 11/08/23 History mcg-4.5 mcg/actuation aerosol inhaler (Symbicort) ibuprofen 200 mg tablet (Advil) 600 mg PO DIRECTED PRN 11/08/23 11/08/23 History PAIN/FEVER Patient History Medical History Asthma Surgical History No pertinent past surgical history Social History Smoking Status: Heavy tobacco smoker Tobacco Type: Cigarettes Hx Alcohol Use: No Hx Substance Use: Yes (occasional social MJ use) Preferred Language: British Communication Ability: Effective Welfare Adviser Required: No Beliefs That Will Affect Care: None Current Living Situation: Alone Current Living Situation Comment: House, 0 [address] Other Information That Helps Us Care for You: No Feels Safe at Home: Yes Safety Concerns: Feels Safe At This Time Assistive Devices: None Review of Systems Review of Systems: Please refer to admission H&P. No additions or deletions Physical Exam Constitutional: + thin and + disheveled ENMT: Mouth: + dental caries and + poor dentition Neck: trachea midline, no thyromegaly Respiratory: no respiratory distress, no labored breathing and not tachypneic Auscultation: + diminished lung sounds Left lung base with tenderness to palpation Cardiovascular: RRR, no murmur, no edema Gastrointestinal (Abdomen): normal bowel sounds, soft, nontender, no hepatosplenomegaly Musculoskeletal: Extremities: extremities normal to inspection Skin: no rashes, warm and dry Neurologic: Nonfocal exam Lymphatic: no cervical lymphadenopathy Results & Data Results & Data Vital Signs (Past 12 Hours) Vital Signs Temp Pulse Pulse Resp BP Pulse Ox Pulse Ox 11/09/23 07:13 100 H 11/09/23 04:23 11/09/23 04:13 36.9 C 85 18 98 11/09/23 03:24 92 H 18 98 11/09/23 03:14 11/09/23 03:14 97 11/09/23 03:10 84 16 116/68 96 11/09/23 03:04 87 11/09/23 01:04 84 18 121/74 95 11/09/23 00:23 11/08/23 23:23 96 11/08/23 23:02 98 H 11/08/23 23:00 94 H 20 106/56 L 97 11/08/23 22:31 37.2 C 101 H 18 114/68 95 O2 Del Method O2 Del Method 11/09/23 07:13 11/09/23 04:23 Room Air 11/09/23 04:13 Room Air 11/09/23 03:24 Room Air 11/09/23 03:14 Room Air 11/09/23 03:14 Room Air 11/09/23 03:10 Room Air 11/09/23 03:04 11/09/23 01:04 11/09/23 00:23 Room Air 11/08/23 23:23 Room Air 11/08/23 23:02 11/08/23 23:00 11/08/23 22:31 Room Air Critical Care Results & Data Vital Signs (Past 12 Hours) Vital Signs Temp Pulse Pulse Resp BP Pulse Ox Pulse Ox 11/09/23 07:13 100 H 11/09/23 04:23 11/09/23 04:13 36.9 C 85 18 98 11/09/23 03:24 92 H 18 98 11/09/23 03:14 11/09/23 03:14 97 11/09/23 03:10 84 16 116/68 96 11/09/23 03:04 87 11/09/23 01:04 84 18 121/74 95 11/09/23 00:23 11/08/23 23:23 96 11/08/23 23:02 98 H 11/08/23 23:00 94 H 20 106/56 L 97 11/08/23 22:31 37.2 C 101 H 18 114/68 95 O2 Del Method O2 Del Method 11/09/23 07:13 11/09/23 04:23 Room Air 11/09/23 04:13 Room Air 11/09/23 03:24 Room Air 11/09/23 03:14 Room Air 11/09/23 03:14 Room Air 11/09/23 03:10 Room Air 11/09/23 03:04 11/09/23 01:04 11/09/23 00:23 Room Air 11/08/23 23:23 Room Air 11/08/23 23:02 11/08/23 23:00 11/08/23 22:31 Room Air Lab & Micro Results (Past 24 Hours) RBC 4.06 M/uL (4.70-6.10) L 11/09/23 WBC 29.80 K/ul (4.8-10.8) H 11/09/23 Hgb 12.1 g/dl (14.0-18.0) L 11/09/23 Hct 35.8 % (42.0-52.0) L 11/09/23 MCV 88.2 fL (80.0-100.0) 11/09/23 MCH 29.8 pg (25.0-34.0) 11/09/23 MCHC 33.8 g/dL (32.0-36.0) 11/09/23 RDW Standard Deviation 43.9 fL (36.4-46.3) 11/09/23 RDW Coefficient of Variation 13.5 % (11.5-14.5) 11/09/23 Plt Count 506 K/uL (130-400) H 11/09/23 MPV 8.8 fL (9.4-12.4) L 11/09/23 Neutrophils (%) (Auto) 84.3 % 11/09/23 Lymphocytes (%) (Auto) 2.6 % 11/09/23 Monocytes # (Auto) 1.58 K/uL (0.11-0.59) H 11/09/23 Eosinophils # (Auto) 1.00 K/uL (0.00-0.50) H 11/09/23 Immature Granulocyte % (Auto) 4.0 % 11/09/23 Neutrophils # (Auto) 25.14 K/uL (1.40-6.50) H 11/09/23 Lymphocytes # (Auto) 0.78 K/uL (1.20-3.40) L 11/09/23 Monocytes # (Auto) 1.58 K/uL (0.11-0.59) H 11/09/23 Eosinophils # (Auto) 1.00 K/uL (0.00-0.50) H 11/09/23 Basophils # (Auto) 0.12 K/uL (0.00-0.20) 11/09/23 Immature Granulocyte # (Auto) 1.18 K/uL (0.01-0.20) H 11/08 Echinocytes 1+ 11/09/23 Dohle Bodies 1+ 11/09/23 Na 136 mmol/L (136-145) 11/09/23 K 3.6 mmol/L (3.5-5.1) 11/09/23 Cl 103 mmol/L (98-107) 11/09/23 CO2 25 mmol/L (21-32) 11/09/23 Anion Gap 8 (3-11) 11/09/23 BUN 11 mg/dl (6-23) 11/09/23 Creatinine 0.65 mg/dl (0.6-1.4) 11/09/23 Estimated GFR ( Amer) 133.3 ml/min 11/09/23 Estimated GFR (Non-Af Amer) 115.0 ml/min 11/09/23 BUN/Creatinine Ratio 16.9 (10-20) 11/09/23 Glu 111 mg/dl (70-99(Fasting)) H 11/09/23 Ca 8.2 mg/dl (8.6-10.3) L 11/09/23 Total Bilirubin 0.3 mg/dl (0.2-1.0) 11/08/23 AST 7 U/L (13-39) L 11/08/23 ALT 12 U/L (7-52) 11/08/23 Alkaline Phosphatase 69 U/L (34-104) 11/08/23 TP 6.1 gm/dl (6.0-8.3) 11/08/23 Albumin 3.0 gm/dl (3.4-5.0) L 11/08/23 Globulin 3.1 gm/dl (2.5-4.0) 11/08/23 Albumin/Globulin Ratio 1.0 (0.9-2) 11/08/23 Mg 2.0 mg/dl (1.7-2.4) 11/08/23 23:05 Calcium Level 8.2 mg/dl (8.6-10.3) L 11/09/23 05:25 Diagnostic Findings (Past 24 Hours) Abdomen/Pelvis CT 11/08/23 22:51 Exam(s): CT ABDOMEN + PELVIS With Contrast IV Amt: 119 cc's optiray 320 EXAM: CT Abdomen and Pelvis With Intravenous Contrast CLINICAL HISTORY: Reason for exam: SOB, left flank pain. TECHNIQUE: Axial computed tomography images of the abdomen and pelvis with intravenous contrast. CTDI is 32.04 mGy and DLP is 819.51 mGy-cm. Automated exposure control was utilized for the study. A dose lowering technique was utilized adhering to the principles of ALARA. CONTRAST: Patient received 119 cc's optiray 320 of IV contrast COMPARISON: None. FINDINGS: Lung bases: Left lower lobe consolidation suggestive of atelectasis versus residual infiltrate. Trace right lower lobe atelectasis. Pleural space: Loculated left-sided pleural effusions with small irregular pockets of fluid within the left pleural base and peripheral enhancement, combination of findings concerning for empyema. Cannot exclude neoplasm. Heart: Unremarkable. No cardiomegaly. No significant pericardial effusion. Normal cardiac size. ABDOMEN: Liver: Low-attenuation structure within the anterior aspect of the left liver lobe measuring 9.7 mm, likely liver cyst. Otherwise normal liver. Gallbladder and bile ducts: Unremarkable. No calcified stones. No ductal dilation. Pancreas: Unremarkable. No mass. No ductal dilation. Spleen: Unremarkable. No splenomegaly. Adrenals: Unremarkable. No mass. Kidneys and ureters: Unremarkable. No solid mass. No hydronephrosis. Stomach and bowel: Several loops of small bowel with mild thickening of the wall, more so along the left upper abdomen. There is fluid within the colon with mild thickening of the wall to the distal sigmoid and descending colon, combination of findings which may indicate enteritis/enterocolitis. No obstruction. PELVIS: Appendix: Nonvisualized appendix with no focal inflammation by the cecum to suggest acute appendicitis. Bladder: Unremarkable. No mass. Reproductive: Unremarkable as visualized. ABDOMEN and PELVIS: Intraperitoneal space: Unremarkable. No free air. No significant fluid collection. Bones/joints: Degenerative disease at L4-L5 with anterolisthesis of L4 on L5 (10 mm) along with bilateral pars defect of L4. Minor spondylosis of the remainder of the spine. No acute fracture. No dislocation. Soft tissues: Unremarkable. Vasculature: Unremarkable. No abdominal aortic aneurysm. Lymph nodes: Unremarkable. No enlarged lymph nodes. IMPRESSION: 1. Loculated left-sided pleural effusions as described which may indicate empyema, differential diagnosis including neoplasm. Further evaluation with CT chest recommended if clinically indicated. 2. Cannot exclude mild enteritis/enterocolitis with no bowel obstruction. 3. 9.7 mm liver cyst, otherwise unremarkable abdominal viscera. Electronically signed by: Meghann Mcnair MD 11/09/23 01:48 AM Chest CTA 11/08/23 22:51 Exam(s): CTA CHEST IV Amt: 119 cc's of optiray 320 EXAM: CT Angiography Chest With Intravenous Contrast CLINICAL HISTORY: Reason for exam: SOB, left flank pain. TECHNIQUE: Axial computed tomographic angiography images of the chest with intravenous contrast. CTDI is 12.2 mGy and DLP is 820 mGy-cm. Automated exposure control was utilized for the study. A dose lowering technique was utilized adhering to the principles of ALARA. MIP reconstructed images were created and reviewed. COMPARISON: Chest x-ray from November 08, 2023 FINDINGS: Pulmonary arteries: The pulmonary arterial tree is well opacified with contrast. No pulmonary embolism is identified. Aorta: The thoracic aorta is nondilated. There is no aneurysm or dissection. Lungs: There is bronchial wall thickening centrally in both lungs as well as a small amount of bronchial plugging extending to the left lower lobe suggesting bronchitis and pneumonia. No mass. Pleural space: Multiloculated left pleural effusion measuring 3-4 cm thick over the mid to lower left hemithorax. There is consolidation of the left lower lobe and portions of the lingula consistent with atelectasis or pneumonia. Heart: Unremarkable. No cardiomegaly. No significant pericardial effusion. No evidence of RV dysfunction. Bones/joints: No acute fracture. No dislocation. Soft tissues: Unremarkable. Lymph nodes: Unremarkable. No enlarged lymph nodes. IMPRESSION: 1. Multiloculated left pleural effusion measuring 3-4 cm thick over the mid to lower left hemithorax. There is consolidation of the left lower lobe and portions of the lingula consistent with atelectasis or pneumonia. 2. There is bronchial wall thickening centrally in both lungs as well as a small amount of bronchial plugging extending to the left lower lobe suggesting bronchitis and pneumonia. 3. The thoracic aorta is nondilated. There is no aneurysm or dissection. 4. The pulmonary arterial tree is well opacified with contrast. No pulmonary embolism is identified. Electronically signed by: Will John MD 11/09/23 01:09 AM I & O Totals 24 Hours 11/08/23 11/09/23 11/10/23 06:59 06:59 06:59 Intake Total 1453.333 / 1453.333 Balance 1453.333 / 1453.333 Cumulative 11/08/23 22:27 thru 11/09/23 05:26 Intake Total 1453.333 Balance 1453.333 RT Ventilator Mngmt (Last Documented) Ventilator Ordered Settings Respiratory Rate 18 11/09/23 04:13 Ventilator - PT Measurements Respiratory Rate 18 PG Care Time/CCT Total # of Minutes Spent Total Time Spent with Patient: Total time spent is greater than 50% in coordination of care (as documented) at patient's floor/unit and/or counseling patient: Coding Level of Care Code 39572 IN/OBS CONSULT LVL 4,60M Diagnoses Parapneumonic effusion J18.9; J91.8 Pneumonia J18.9
--- NOTE | 2023-11-09 07:55 | Procedure Note ---
Procedure Note Date of Service November 09, 2023 Note Procedure: 14 Malay pigtail catheter placement Indication: Parapneumonic effusion Consent risk and benefits were discussed with the patient. He agreed. Written consent was verified prior to commencement of the procedure. Senior Publications Specialist Dr. Robins Estimated blood loss: Less than 5 mL Anesthesia: 5 mL 1% lidocaine without epinephrine locally. Procedure: Patient was admitted with pulmonary infiltrates, chest pain, and a loculated probable parapneumonic effusion. Risks and benefits were discussed with the patient. He agreed to proceed. The patient was most comfortable in a semirecumbent position. The left arm was extended over the head. Ultrasound was performed in the mid axillary line and a pocket of fluid was identified just inferior to the nipple line. Patient had significant pain with any palpation of the chest wall. The area was cleansed using chlorhexidine and a sterile field established. The skin was anesthetized with lidocaine. The muscle and deeper soft tissues were anesthetized using a finder needle. With the finder needle I was able to aspirate some cloudy yellow fluid. The finder needle was then withdrawn. A small skin neo was made with a scalpel. An 18-gauge needle was then advanced on a similar line until I was able to aspirate purulent appearing fluid. The syringe was withdrawn leaving the needle in place. A wire was passed through the needle and then the needle was withdrawn leaving the wire in the pleural space. A 14 Malay dilator was then passed over the wire to dilate the skin and soft tissues. This passed with ease. The dilator was removed leaving the wire in place. A 14 Malay pigtail catheter was then loaded on a straightening catheter and advanced over the wire into the pleural space. The stiffening catheter and wire were removed leaving the pigtail catheter in place. The locking mechanism was secured. A three-way stopcock was attached. About 150 cc of fluid was collected for microbiologic and cytologic analysis. The tube was attached to suction with a transient air leak and then removal of about 300 additional cc of sarmad cloudy fluid through the Pleur-evac system. The skater catheter fixation system was attached to the chest wall and the catheter secured. Catheter was attached to suction at 20 cm of water. Post procedure chest x-ray is pending. The patient tolerated the procedure well. Fluid will be sent for cell count differential, Gram stain and culture, LDH, pH, glucose, total protein and cytology Continue tube to 20 cm of suction and initiate mist 2 protocol Coding CPT Codes Pulmonary/Thoracic - Pulmonary and Thoracic: 45746 Tube thoracostomy ([id number]) Pulmonary/Thoracic - Pulmonary and Thoracic: 57364 US, Chest, real time with imaging documentation ([id number]) [facility] [place] Procedure Codes (Charges) Pulmonary/Thoracic Procedure 1: Pulmonary and Thoracic: 05071 Tube thoracostomy Procedure 2: Pulmonary and Thoracic: 73024 US, Chest, real time with imaging documentation
--- NOTE | 2023-11-09 08:17 | XRay Report ---
XR chest 1V portable CLINICAL HISTORY: Chest pain, nonspecific TECHNIQUE: Single frontal radiograph of the chest was obtained. Comparison: Comparison is made to chest radiograph 04/17/2014 FINDINGS: No lines and tubes are seen. The cardiomediastinal silhouette is normal. The lungs are clear. Small l eft pleural effusion is seen. IMPRESSION: Small left pleural effusion. Of note, this was seen in prior CT abdomen pelvis and found to be locula zulema possibly representing malignant effusion versus empyema. ACT 112: Negative or not required by law. Electronically signed by: Je Gleason M.D. 11/09/2023 8:16 AM
[2023-11-09] MEDS: DORNASE ALFA 5 ML in SYRINGE 25 ML IPL SCH (08:45)
--- NOTE | 2023-11-09 08:49 | XRay Report ---
XR chest 1V portable CLINICAL HISTORY: S/P Thoracentesis TECHNIQUE: Single frontal radiograph of the chest was obtained. Comparison: Comparison is made to chest radiograph 11/08/2023 FINDINGS: Left chest tube has been placed. The cardiomediastinal silhouette is normal. Airspace opacities in th e left lung base. Small left pleural effusion is minimally decreased from prior exam. There is no georgi dence of pneumothorax. IMPRESSION: Interval placement of left chest tube. Slight decrease in size of left pleural effusion without pneum othorax. ACT 112: Negative or not required by law. Electronically signed by: Je Gleason M.D. 11/09/2023 8:48 AM
[2023-11-09 09:03] LABS: Glucose Pleural Fluid < 10 mg/dl; Total Protein Pleural Fluid 4.9 gm/dl
[2023-11-09 09:16] LABS: LDH Pleural Fluid 2447 U/L
[2023-11-09 09:21] LABS: Appearance Pleural Fluid Cloudy; Color Pleural Fluid Straw; Eosinophils, Fluid 1 %; Lymphocytes, Fluid 1 %; Mono,Macrophage,Mesothelial 5 %; Neutrophils, Fluid 93 %; RBC Pleural Fluid Auto 5000 /uL; Source Pleural Fluid Left Lung; WBC Pleural Fluid Auto 14195 /uL
[2023-11-09] MEDS: FLUTICASONE/VILANTEROL 100/25MCG 14 PUFFS/INHALER INH SCH (10:08)
[2023-11-09] MEDS: ENOXAPARIN INJ 30 MG/0.3 ML SYR SQ SCH (10:09)
[2023-11-09] MEDS: ALTEPLASE, RECOMBINANT 10 MG in SYRINGE 50 ML IPL SCH (10:10)
[2023-11-09] MEDS: MoRPHine SULFATE 2 MG/ML CARP IV PRN ×2 (12:00→20:13)
[2023-11-09] MEDS: oxyCODONE HCL IR 5 MG TAB (IMMEDIATE RELEASE) PO PRN (12:04)
[2023-11-09] MEDS: traMADol HCL 50 MG TABLET PO PRN (16:57)
[2023-11-09 17:48] LABS: Hematocrit (blood only) 37.6 % (42.0-52.0); Hemoglobin 12.9 g/dl (14.0-18.0); Mean Corpuscular Hemoglobin 29.8 pg (25.0-34.0); Mean Corpuscular Hgb Conc 34.3 g/dL (32.0-36.0); Mean Corpuscular Volume 86.8 fL (80.0-100.0); Mean Platelet Volume 8.6 fL (9.4-12.4); Platelet Count 526 K/uL (130-400); RDW Coefficient of Variation 13.4 % (11.5-14.5); RDW Standard Deviation 42.8 fL (36.4-46.3); Red Blood Count 4.33 M/uL (4.70-6.10); White Blood Count 24.12 K/ul (4.8-10.8)
[2023-11-09 18:04] LABS: Basophils # (auto) 0.09 K/uL (0.00-0.20); Basophils % (auto) 0.4 %; Dohle Bodies 1+; Echinocytes 2+; Eosinophils # (auto) 1.06 K/uL (0.00-0.50); Eosinophils % (auto) 4.4 %; Immature Granulocytes # (auto) 0.57 K/uL (0.01-0.20); Immature Granulocytes % (auto) 2.4 %; Lymphocytes # (auto) 0.62 K/uL (1.20-3.40); Lymphocytes % (auto) 2.6 %; Monocytes # (auto) 0.91 K/uL (0.11-0.59); Monocytes % (auto) 3.8 %; Neutrophils # (auto) 20.87 K/uL (1.40-6.50); Neutrophils % (auto) 86.4 %
[2023-11-09] MEDS ORDERED: Nursing to Pharmacy Communication SCH (18:15)
[2023-11-09 18:16] LABS: INR 1.2 (0.9-1.1); Partial Thromboplastin Ratio 1.3; Partial Thromboplastin Time 36 Seconds (21-31)
--- NOTE | 2023-11-09 18:16 | XRay Report ---
XR chest 1V portable CLINICAL HISTORY: chest tube TECHNIQUE: Single frontal radiograph of the chest was obtained. Comparison: Comparison is made to chest radiograph 11/09/2023 FINDINGS: Left chest tube is seen. The cardiomediastinal silhouette is stable. Left mid and lower lung airspace opacities are seen. There is a left apical pneumothorax. IMPRESSION: 1. Left apical pneumothorax has developed from the prior exam. A left chest tube remains in place. 2. Left mid and lower lung airspace opacities are increased from prior exam and may represent locula zulema pleural effusion or atelectasis/pneumonia. ACT 112: Negative or not required by law. Electronically signed by: Je Gleason M.D. 11/09/2023 6:15 PM
[2023-11-09] MEDS: DOXYCYCLINE HYCLATE 100 MG CAP PO SCH (21:12)
--- NOTE | 2023-11-09 22:55 | Electrocardiogram Report ---
Test Reason : Blood Pressure : / mmHG Vent. Rate : 097 BPM Atrial Rate : 097 BPM P-R Int : 104 ms QRS Dur : 082 ms QT Int : 348 ms P-R-T Axes : 072 068 058 degrees QTc Int : 441 ms Sinus rhythm with short KS Otherwise normal ECG When compared with ECG of 17-APR-2014 20:51, No significant change was found Confirmed by Manuel Verdugo ([id number]) on 11/09/2023 10:54:31 PM Referred By: REFERRED SELF Confirmed By:Manuel Verdugo
[2023-11-10] MEDS ORDERED: methylPREDNISolone 125 MG/2 ML VIAL IV STA (00:34)
--- NOTE | 2023-11-10 00:36 | Communication Note ---
Date of Service: November 10, 2023
[2023-11-10] MEDS: IPRATROPIUM BROMIDE NEB SOLN 0.02% 0.5MG/2.5ML VIAL INH STA (00:45)
[2023-11-10] MEDS: LEVALBUTEROL 1.25 MG/3 ML NEB NEB STA (00:45)
[2023-11-10 00:58] LABS: Allen Test Pos (Pos); Base Excess ABG 1.8 mEq/L (-9-1.8); HCO3 ABG 26 mmol/L (19-24); Oxygen Saturation ABG 96.7 % (90-95); PCO2 ABG 37 mmHg (35-46); PO2 ABG 78 mmHg (80-95); pH ABG 7.45 (7.35-7.45)
[2023-11-10] MEDS: methylPREDNISolone 20 MG in SYRINGE 0 ML IV ONE (00:58)
[2023-11-10] MEDS: MAGNESIUM SULFATE / D5W 1 GM/100 ML BAG IV ONE (01:19)
[2023-11-10] MEDS: POTASSIUM CHLORIDE PWD 20 MEQ PACK PO STA (01:27)
--- NOTE | 2023-11-10 07:44 | XRay Report ---
XR chest 1V portable CLINICAL HISTORY: Chest tube ? MIST 2 protocol TECHNIQUE: Single frontal radiograph of the chest was obtained. Comparison: Comparison is made to chest radiograph 11/22/2023 FINDINGS: Stable left chest tube. The cardiomediastinal silhouette is normal. Left lung base and mid lung densi ties are unchanged from prior exam. Interval enlargement of the left apical pneumothorax which now me asures up to 13 mm in diameter. IMPRESSION: Mild interval enlargement of the left apical pneumothorax. Stable left chest tube. Densities in the l eft lung are again seen which may represent loculated effusion or less likely aspiration/pneumonia. ACT 112: Negative or not required by law. Electronically signed by: Je Gleason M.D. 11/10/2023 7:43 AM
--- NOTE | 2023-11-10 07:44 | XRay Report ---
XR chest 1V portable HISTORY: Shortness of breath. COMPARISON: Chest 11/09/2023. FINDINGS: A left basilar chest tube and small left pleural effusions/densities persist. There is a sm all left apical pneumothorax which is similar to the prior study. This demonstrates a maximal pleural gap of 7 mm. Lobular density within the left upper to midlung zone has slightly progressed and likel y represents loculated pleural fluid. The heart is normal in size. No evidence for pulmonary edema. N o acute fractures identified. IMPRESSION: 1. A small left apical pneumothorax is similar to the prior study. 2. Left basilar chest tube is unchanged in position. 3. A lobular density within the left upper to midlung zone has slightly progressed and likely represe nts loculated pleural fluid. ACT 112: Negative or not required by law. Electronically signed by: Gary Tipton M.D. 11/10/2023 7:43 AM
--- NOTE | 2023-11-10 07:48 | Pulmonology Progress Note ---
Date of Service November 10, 2023 Assessment & Plan (1) Parapneumonic effusion: (2) Pneumonia: Plan Impression: 48-year-old male with asthma and history of tobacco abuse presenting with loculated empyema status post 14 Turkmen pigtail catheter placement. He has a small apical pneumothorax and chest x-ray suggests potential loculated fluid in the fissure. Recommendations: 1. Pneumonic effusion: Continue mist 2 protocol. The serosanguineous drainage is not unexpected and is not a contraindication to intrapleural thrombolytics or fibrinolytics. Discussed with bedside nurse. Will follow imaging. If the hazy opacity in the left midlung zone persists despite intrapleural fibrinolysis, CT of the chest might be appropriate and if there is retained fluid, he may require transfer for thoracic surgery intervention. 2. Pneumonia: Continue antibiotics. No gram-negative rods identified and can de-escalate to Unasyn. Suspect polymicrobial anaerobic infection. Follow white blood cell count. 3. Would recommend dental/oral maxillary facial consultation for management of his poor dentition. This likely is the etiology of his infection and will be recurrent if his dental issues or not adequately addressed. 4. Will place the patient on an oral pain medication to try and get more even pain control. Toradol 3 times a day will be initiated for 3 days. IV pain medication for breakthrough pain. 5. Hypoxemia: Secondary to #1 and #2. Continue supplemental oxygen titrated to keep saturations at or above 88%. Will continue to follow with you. Thanks for the opportunity of participating in the care of this patient. Feel free to contact us with questions or concerns Admission and Anticipated Discharge Date Admission Date: November 09, 2023 Subjective Patient seen and examined. EMR reviewed. Discussed with bedside nurse. Discussed last night extensively. There was concern about bleeding emanating from the tube. His hemoglobin was stable and chest x-ray showed improved aeration at the left lung base with probable loculated fluid within the fissure. The patient is doing reasonably well. He continues to have some pain due to the chest tube. Medications are effective however they do not really last long enough. He is coughing and expectorating some phlegm. He denies fevers chills or night sweats. Review of Systems 2 Review of Systems: All systems reviewed & are unremarkable except as noted in Subjective Physical Exam 2 Constitutional: + thin and + disheveled ENMT: Mouth: + dental caries and + poor dentition Neck: trachea midline, no thyromegaly Respiratory: no respiratory distress, no labored breathing and not tachypneic Auscultation: + diminished lung sounds Cardiovascular: RRR, no murmur, no edema Chest (Breasts): Additional Comments: Chest tube with no air leak. Output is about 1200 cc serosanguineous Gastrointestinal (Abdomen): normal bowel sounds, soft, nontender, no hepatosplenomegaly Musculoskeletal: Extremities: extremities normal to inspection Skin: no rashes, warm and dry Lymphatic: no cervical lymphadenopathy Results & Data Results & Data Vital Signs (Past 12 Hours) Vital Signs Temp Pulse Pulse Resp BP Pulse Ox O2 Del Method 11/10/23 07:37 36.6 C 76 16 95/61 L 96 Nasal Cannula 11/10/23 03:43 36.7 C 78 20 102/57 L 96 Nasal Cannula 11/09/23 23:39 37.3 C 96 H 20 104/70 95 Nasal Cannula 11/09/23 23:30 97 H 11/09/23 23:08 36.4 C L 94 H 20 91/63 L 93 Nasal Cannula 11/09/23 21:14 97 H 94 Nasal Cannula 11/09/23 19:46 37.3 C 99 H 20 104/68 91 Nasal Cannula O2 Flow Rate 11/10/23 07:37 4 11/10/23 03:43 4 11/09/23 23:39 4 11/09/23 23:30 11/09/23 23:08 1 11/09/23 21:14 2 11/09/23 19:46 1 Laboratory Results 11/09/23 17:30 11/09/23 05:25 Pleural fluid studies: Cytology pending Differential 93% neutrophils, 1% lymphocytes, 1% eosinophils, 5% mesothelial cells pH less than 7 LDH 2447 Total protein 4.9 Glucose less than 10 Gram stain with gram-positive cocci and many white blood cells, culture pending AFB stains and cultures pending Diagnostic Findings Chest x-ray from today was independently reviewed. The tubes in good position at the left lung base. There is an opacity throughout the left midlung zone which may represent loculated fluid in the fissure. There is an apical pneumothorax on the left which may be slightly increased compared to films from midnight last night PG Care Time/CCT Total # of Minutes Spent Total Time Spent with Patient: Total time spent is greater than 50% in coordination of care (as documented) at patient's floor/unit and/or counseling patient: Coding Level of Care Code 23670 SUB INP/OBS CARE 3/50MIN Diagnoses Parapneumonic effusion J18.9; J91.8 Pneumonia J18.9
[2023-11-10] MEDS: traMADol HCL 50 MG TABLET PO SCH (08:22)
[2023-11-10] MEDS: SODIUM CHLORIDE 0.9% 1,000 ML IV SCH (09:14)
[2023-11-10 09:26] LABS: Hematocrit (blood only) 35.8 % (42.0-52.0); Hemoglobin 12.6 g/dl (14.0-18.0); Mean Corpuscular Hemoglobin 29.9 pg (25.0-34.0); Mean Corpuscular Hgb Conc 35.2 g/dL (32.0-36.0); Mean Platelet Volume 8.6 fL (9.4-12.4); Platelet Count 563 K/uL (130-400); RDW Coefficient of Variation 13.6 % (11.5-14.5); RDW Standard Deviation 42.4 fL (36.4-46.3); Red Blood Count 4.21 M/uL (4.70-6.10); White Blood Count 21.73 K/ul (4.8-10.8)
[2023-11-10 09:46] LABS: BUN Creatinine Ratio 20.9 (10-20); Calcium 8.6 mg/dl (8.6-10.3); Creatinine Clr Calc Pharmacy 111.6 ml/min; Est GFR (African American) 131.7 ml/min; Est GFR (Non-African American) 113.6 ml/min; Potassium 4.4 mmol/L (3.5-5.1)
[2023-11-10 10:03] LABS: Basophils # (auto) 0.03 K/uL (0.00-0.20); Basophils % (auto) 0.1 %; Dohle Bodies 1+; Echinocytes 1+; Eosinophils # (auto) 0.02 K/uL (0.00-0.50); Eosinophils % (auto) 0.1 %; Immature Granulocytes # (auto) 0.43 K/uL (0.01-0.20); Lymphocytes # (auto) 0.46 K/uL (1.20-3.40); Lymphocytes % (auto) 2.1 %; Monocytes # (auto) 0.69 K/uL (0.11-0.59); Monocytes % (auto) 3.2 %; Neutrophils % (auto) 92.5 %; Polychromasia 1+; Toxic Granulation 1+
[2023-11-10] MEDS: IRON SUCROSE 300 MG in SODIUM CHLORIDE 0.9% 250 ML IV ONE (10:09)
--- NOTE | 2023-11-10 15:00 | Hospitalist Progress Note ---
Date of Service November 10, 2023 Assessment & Plan (1) Sepsis: Plan: Secondary to complicated pneumonia Possible aspiration Left-sided pleural effusion, status post chest tube insertion 4/9 BP on the lower end, continue IV fluids Afebrile White count from 29,000 currently 21 K BioFire: Negative Blood cultures: Negative so far Sputum culture: Light normal chen Pleural fluid culture: Pending Antibiotics transition to Unasyn per pulmonary service recommendations Hemoglobin stable overall Continue pain control for chest tube insertion site pain Further management of chest tube per Dr. Robins Bronchial asthma Does not seem to be in exacerbation New onset anemia, profound iron deficiency, vitamin B12 and folate deficiency Hemoglobin stable around 12 Patient denies bleeding Iron less than 10, IV Venofer ordered, ferrous sulfate Will also order vitamin B12 and folate supplementation Hyperglycemia rule out DM A1c 6.1 Outpatient follow-up ongoing tobacco abuse Nicotine patch as needed DVT prophylaxis. Lovenox subcu Full code plan of care discussed with patient in detail and at length all questions answered He is understanding, agreeable, comfortable with the plan of care Admission and Anticipated Discharge Date Admission Date: November 09, 2023 Subjective Follow-up for pneumonia, pleural effusion, etc. Seen resting in bed, comfortable, not in distress On 3 to 4 L of O2 via nasal cannula States breathing is fine No active shortness of breath Still having some pain over the chest tube insertion site No fevers or chills, nausea or vomiting, abdominal pain, dizziness No other new symptoms Review of Systems Review of Systems: all noted and negative except for above Physical Exam Physical Exam: General- oriented x 3, not in distress, speaks in sentences with no effort or accessory muscle use Eyes- anicteric Neck- no JVD Lungs-mild rales at the left base, chest tube in place, no bleeding or discharge, draining serosanguineous output Clear on the right Heart- normal rate, regular rhythm; no murmurs Abdomen- normal bowel sounds, nondistended, soft, nontender Extremities- no pretibial edema, no calf tenderness Neuro- alert, oriented x 3; no gross focal neurologic deficits Skin- warm & dry Results & Data Results & Data Vital Signs (Past 12 Hours) Vital Signs Temp Pulse Pulse Resp BP Pulse Ox O2 Del Method 11/10/23 13:24 Nasal Cannula 11/10/23 12:09 73 18 95/60 L 95 Nasal Cannula 11/10/23 10:43 36.7 C 73 19 100/62 97 Nasal Cannula 11/10/23 10:19 79 11/10/23 09:34 84 19 93/64 L 96 Nasal Cannula 11/10/23 07:37 36.6 C 76 16 95/61 L 96 Nasal Cannula 11/10/23 03:43 36.7 C 78 20 102/57 L 96 Nasal Cannula O2 Flow Rate 11/10/23 13:24 4 11/10/23 12:09 4 11/10/23 10:43 4 11/10/23 10:19 11/10/23 09:34 4 11/10/23 07:37 4 11/10/23 03:43 4 all noted and reviewed including below
[2023-11-10] MEDS: FERROUS SULFATE 325 MG TAB PO SCH (16:45)
[2023-11-10] MEDS: AMPICILLIN/SULBACTAM SOD 3,000 MG in SODIUM CHLOR 0.9% MINI-B 100 ML IV SCH (16:45)
[2023-11-10] MEDS: ADVANCED PROBIOTIC 625 MG CAPSULE PO SCH (16:45)
[2023-11-11] MEDS: ALBUT/IPRATROP 3MG/0.5MG NEB 3 ML VIAL NEB PRN (06:20)
[2023-11-11 07:15] LABS: Basophils # (auto) 0.03 K/uL (0.00-0.20); Basophils % (auto) 0.2 %; Eosinophils # (auto) 0.42 K/uL (0.00-0.50); Eosinophils % (auto) 2.5 %; Hematocrit (blood only) 34.8 % (42.0-52.0); Immature Granulocytes # (auto) 0.11 K/uL (0.01-0.20); Immature Granulocytes % (auto) 0.7 %; Lymphocytes # (auto) 1.15 K/uL (1.20-3.40); Lymphocytes % (auto) 6.8 %; Mean Corpuscular Hemoglobin 29.9 pg (25.0-34.0); Mean Corpuscular Hgb Conc 34.5 g/dL (32.0-36.0); Mean Corpuscular Volume 86.8 fL (80.0-100.0); Mean Platelet Volume 8.5 fL (9.4-12.4); Monocytes # (auto) 1.43 K/uL (0.11-0.59); Monocytes % (auto) 8.5 %; Neutrophils # (auto) 13.67 K/uL (1.40-6.50); Neutrophils % (auto) 81.3 %; Platelet Count 560 K/uL (130-400); RDW Coefficient of Variation 13.7 % (11.5-14.5); RDW Standard Deviation 43.5 fL (36.4-46.3); Red Blood Count 4.01 M/uL (4.70-6.10); White Blood Count 16.81 K/ul (4.8-10.8)
[2023-11-11 07:42] LABS: BUN Creatinine Ratio 31.6 (10-20); Calcium 8.1 mg/dl (8.6-10.3); Est GFR (African American) 140.7 ml/min; Est GFR (Non-African American) 121.4 ml/min; Potassium 4.3 mmol/L (3.5-5.1)
--- NOTE | 2023-11-11 08:42 | XRay Report ---
XR chest 1V portable HISTORY: Chest tube ? MIST 2 protocol COMPARISON: Chest 11/10/2023. FINDINGS: Left basilar chest tube is unchanged in position. Hazy appearance to left hemithorax has pr ogressed and suggest increased in size in the loculated pleural effusion. The patient's left apical p neumothorax is not well visualized due to the suspected increase in size in the loculated pleural eff usion. No right-sided pneumothorax. The heart is stable in size. Small patchy densities within the ri ght medial lung base persist. IMPRESSION: 1. A left basilar chest tube is unchanged in position. 2. Hazy appearance to left hemithorax has progressed and is consistent with increase in size in a loc ulated left pleural effusion. 3. The patient's left apical pneumothorax is not well visualized due to the suspected increase in siz e in the loculated pleural effusion. ACT 112: Negative or not required by law. Electronically signed by: Gary Tipton M.D. 11/11/2023 8:41 AM
--- NOTE | 2023-11-11 08:46 | Pulmonology Progress Note ---
Date of Service November 11, 2023 Assessment & Plan (1) Parapneumonic effusion: (2) Pneumonia: Plan Impression: 48-year-old male with asthma and history of tobacco abuse presenting with loculated empyema status post 14 Yi pigtail catheter placement. He has a small apical pneumothorax and chest x-ray suggests potential loculated fluid in the fissure. Recommendations: 1. Pneumonic effusion: Continue mist 2 protocol - currently on day 2 of 3. The serosanguineous drainage is not unexpected and is not a contraindication to intrapleural thrombolytics or fibrinolytics. CXR reviewed with my attending. Will add chest CT today to assess parenchyma. Consider thoracic surgery evaluation pending results. 2. Pneumonia: Continue antibiotics. Continue Unasyn. Suspect polymicrobial anaerobic infection. Follow white blood cell count. 3. Would recommend dental/oral maxillary facial consultation for management of his poor dentition. This likely is the etiology of his infection and will be recurrent if his dental issues or not adequately addressed. 4. Continue with PO and IV pain meds as this has seemed to provide relief. 5. Hypoxemia: Secondary to #1 and #2. Continue supplemental oxygen titrated to keep saturations at or above 88%. Will continue to follow with you. Thanks for the opportunity of participating in the care of this patient. Feel free to contact us with questions or concerns Admission and Anticipated Discharge Date Admission Date: November 09, 2023 Subjective Patient seen and evaluated at bedside. Offering some mild complaints of discomfort at the site of tube insertion. Otherwise, has been tolerating the mist 2 protocol well. Review of Systems Review of Systems: Please refer to admission H&P. No additions or deletions Physical Exam Physical Exam: VITAL SIGNS - Vital signs and nursing notes were reviewed. GENERAL - 48-year-old male appearing his stated age who is in no acute distress. Communicates well with provider and answers questions appropriately. LUNGS - LEFT sided chest tube site clean, dry, and intact. Auscultation reveals slightly course inspiratory breath sounds bilaterally. CARDIAC - RRR with S1/S2. No murmur, rubs, or gallops appreciated. PSYCH - A&Ox3 and cooperates fully with examiner. Pt is very pleasant and interacts well with examiner. Results & Data Results & Data Vital Signs (Past 12 Hours) Vital Signs Temp Pulse Pulse Resp BP Pulse Ox O2 Del Method 11/11/23 07:20 73 11/11/23 06:20 73 18 97 Nasal Cannula 11/11/23 04:30 36.7 C 71 18 110/69 96 Nasal Cannula 11/11/23 01:33 78 11/10/23 23:40 36.8 C 71 18 104/66 97 Nasal Cannula O2 Flow Rate 11/11/23 07:20 11/11/23 06:20 4 11/11/23 04:30 4 11/11/23 01:33 11/10/23 23:40 4 PG Care Time/CCT Total # of Minutes Spent Total Time Spent with Patient: Total time spent is greater than 50% in coordination of care (as documented) at patient's floor/unit and/or counseling patient: Coding Level of Care Code 21818 SUB INP/OBS CARE 2/35MIN Diagnoses Parapneumonic effusion J18.9; J91.8 Pneumonia J18.9
--- NOTE | 2023-11-11 11:20 | CT Scan Report ---
CT chest diagnostic wo con CLINICAL HISTORY: f/u from CXR - effusion TECHNIQUE: Multidetector row helical CT of the chest was performed. Coronal and sagittal reformations were obtained. Automated dose lowering techniques and/or adjustment according to patient size were u tilized for this exam. CT DOSE: 479.46 mGy.cm Comparison: Comparison is made to CT chest 11/09/2023 and chest radiograph 11/11/2023 FINDINGS: Lungs and pleura: Left loculated hydropneumothorax is seen. A left chest tube is seen. There is a sma ll right pleural effusion. Underlying atelectasis is seen bilaterally, left greater than right. Groun dglass opacities are seen, similar to prior exam, as well as a 7 mm nodule in the right upper lobe (s eries 4 image 53). Heart and pericardium: Heart size is normal. No pericardial effusion. Vessels: Unremarkable. Mediastinum and stevan: Unremarkable. Chest wall and lower neck: Unremarkable. Abdomen: Unremarkable. Bones: Degenerative changes in the thoracic spine. IMPRESSION: 1. Interval enlargement of loculated left pleural effusion with interval development of pneumothorax status post chest tube placement. Small right pleural effusion is enlarged from prior exam. Underlyi ng atelectasis has commensurately increased. 2. Groundglass and nodular opacities may represent infectious/inflammatory process. ACT 112: Negative or not required by law. Electronically signed by: Je Gleason M.D. 11/11/2023 11:19 AM
[2023-11-11] MEDS: HYDROmorphone INJ 0.5 MG/0.5 ML SYR IV PRN (12:08)
--- NOTE | 2023-11-11 12:49 | Discharge Summary ---
Discharge Summary Date of Service November 11, 2023 Notes For Next Care Provider Medication Changes From Visit Please refer to assessment and plan below for Admission HPI Per Admitting Provider History obtained from patient and records. Medical history significant for bronchial asthma, chronic back pain, BPH, ongoing tobacco abuse. 1 week history of cough symptoms later productive of junky yellow sputum associated with shortness of breath and pleuritic left-sided chest pain. Possible sick contacts as per patient. 20 pound weight loss over 1 year which patient attributes to stress from divorce. Occasional coughing with water intake. Denies hemoptysis, abdominal pain, black/bloody stools, hematuria. Patient received Vanco and Zosyn at the ER. Medical History as above Surgical History : Mastoid surgery Family History : Asthma; negative lung cancer Personal/Social history : Half pack daily, no EtOH intake, [place] Admission Exam Per Admitting Provider GENERAL: Comfortable, looks older than stated age, no respiratory distress SKIN: Pallor, warm HEENT: Gaunt face, pale palpebral conjunctivae, no ptosis, dry buccal mucosa NECK : Supple, no tenderness CHEST : Decreased breath sounds, occasional expiratory wheezes, left chest ten derness HEART : RRR, no obvious murmurs ABDOMEN:no distention, nontender EXTREMITIES : No LE swelling/tenderness, no other conspicuous deformities noted NEUROLOGIC : Coherent, no facial asymmetry, no other gross focality Principal Dx & Hospital Course #1 = Principal Diagnosis (1) Sepsis: Secondary to complicated pneumonia Possible aspiration Left-sided loculated pleural effusion, status post chest tube insertion BioFire: Negative Blood cultures: Negative x 48 hours Sputum culture: Normal chen Pleural fluid studies: Pending -Follow-up final results 11/10 BP on the lower end, continue IV fluids Afebrile On 4 L of oxygen White count from 29,000, now 16,000 Hemoglobin stable overall Repeat CT chest: 1. Interval enlargement of loculated left pleural effusion with interval development of pneumothorax status post chest tube placement. Small right pleural effusion is enlarged from prior exam. Underlying atelectasis has commensurately increased. 2. Groundglass and nodular opacities may represent infectious/inflammatory process. Transfer to tertiary care facility for evaluation of thoracic surgery service, possible VATS Continue pain control for chest tube insertion site pain Bronchial asthma Does not seem to be in exacerbation New onset anemia, profound iron deficiency, vitamin B12 and folate deficiency Iron less than 10 Transferrin 119 Ferritin 852 Vitamin B12 85 Folate 3.3 Hemoglobin stable around 12 Iron less than 10, IV Venofer ordered, ferrous sulfate Will also order vitamin B12 and folate supplementation Prediabetes A1c 6.1 Outpatient follow-up ongoing tobacco abuse Nicotine patch as needed DVT prophylaxis. Lovenox subcu Full code plan of care discussed with patient in detail and at length all questions answered He is understanding, agreeable, comfortable with the plan of care Updated Medication List Medication Instructions Recorded Confirmed Type acetaminophen 500 mg tablet 1,000 mg PO DIRECTED PRN 11/08/23 11/08/23 History (Tylenol Extra Strength) PAIN/FEVER albuterol sulfate 90 mcg/actuation 2 puff inhalation DIRECTED PRN 11/08/23 11/08/23 History aerosol inhaler Shortness Of Breath Or Wheezing budesonide-formoterol HFA 160 1 inh inhalation QID 11/08/23 11/08/23 History mcg-4.5 mcg/actuation aerosol inhaler (Symbicort) ibuprofen 200 mg tablet (Advil) 600 mg PO DIRECTED PRN 11/08/23 11/08/23 Hist ory PAIN/FEVER cyanocobalamin (vitamin B-12) 2,000 mcg PO DAILY #30 tabs 11/11/23 Rx 2,000 mcg tablet ferrous sulfate 325 mg (65 mg 325 mg PO BIDM 30 days #60 tabs 11/11/23 Rx iron) tablet,delayed release folic acid 1 mg tablet 1,000 mcg PO DAILY 30 days #30 tabs 11/11/23 Rx Hospital Stay Data Consultations 11/09/23 01:20 ED Decision to Admit Stat 11/09/23 03:14 Consult Pulmonology Routine Diagnostic Imagining Performed 11/08/23 22:51 CT abd pelvis IV con only Stat CT angio chest PE protocol Stat 11/11/23 09:00 CT chest diagnostic wo con Routine Discharge Instructions Given to Patient (Per Discharging Provider) Please refer to accompanying hospital discharge summary for further details. Total Time Total Time Spent Total Time Spent (In Minutes): >30 minutes
--- NOTE | 2023-11-11 13:11 | Discharge Summary ---
Discharge Summary Date of Service November 11, 2023 Notes For Next Care Provider Medication Changes From Visit Per assessment and plan below Admission HPI Per Admitting Provider History obtained from patient and records. Medical history significant for bronchial asthma, chronic back pain, BPH, ongoing tobacco abuse. 1 week history of cough symptoms later productive of junky yellow sputum associated with shortness of breath and pleuritic left-sided chest pain. Possible sick contacts as per patient. 20 pound weight loss over 1 year which patient attributes to stress from divorce . Occasional coughing with water intake. Denies hemoptysis, abdominal pain, black/bloody stools, hematuria. Patient received Vanco and Zosyn at the ER. Medical History as above Surgical History : Mastoid surgery Family History : Asthma; negative lung cancer Personal/Social history : Half pack daily, no EtOH intake, Deleon Admission Exam Per Admitting Provider GENERAL: Comfortable, looks older than stated age, no respiratory distress SKIN: Pallor, warm HEENT: Gaunt face, pale palpebral conjunctivae, no ptosis, dry buccal mucosa NECK : Supple, no tenderness CHEST : Decreased breath sounds, occasional expiratory wheezes, left chest tenderness HEART : RRR, no obvious murmurs ABDOMEN:no distention, nontender EXTREMITIES : No LE swelling/tenderness, no other conspicuous deformities noted NEUROLOGIC : Coherent, no facial asymmetry, no other gross focality Principal Dx & Hospital Course #1 = Principal Diagnosis (1) Sepsis: Sepsis Secondary to complicated pneumonia Possible aspiration Left-sided loculated pleural effusion, status post chest tube insertion BioFire: Negative Blood cultures: Negative x 48 hours Sputum culture: Normal chen Pleural fluid studies: Pending -Follow-up final results 4/9 BP on the lower end, continue IV fluids Afebrile On 4 L of oxygen White count from 29,000, now 16,000 Hemoglobin stable overall Repeat CT chest: 1. Interval enlargement of loculated left pleural effusion with interval development of pneumothorax status post chest tube placement. Small right pleural effusion is enlarged from prior exam. Underlying atelectasis has commensurately increased. 2. Groundglass and nodular opacities may represent infectious/inflammatory process. Transfer to tertiary care facility for evaluation of thoracic surgery service, possible VATS Continue pain control for chest tube insertion site pain Bronchial asthma Does not seem to be in exacerbation New onset anemia, profound iron deficiency, vitamin B12 and folate deficiency Iron less than 10 Transferrin 119 Ferritin 852 Vitamin B12 85 Folate 3.3 Hemoglobin stable around 12 Iron less than 10, IV Venofer ordered, ferrous sulfate Will also order vitamin B12 and folate supplementation Pulmonary nodule 7 mm nodule in the right upper lobe Please refer to full report in the Ordered Studies Prediabetes A1c 6.1 Outpatient follow-up Ongoing tobacco abuse Nicotine patch as needed DVT prophylaxis. Lovenox subcu Full code plan of care discussed with patient in detail and at length all questions answered He is understanding, agreeable, comfortable with the plan of care Discharge Exam General- oriented x 3, not in distress, speaks in sentences with no effort or accessory muscle use Eyes- anicteric Neck- no JVD Lungs-mild rales left base, clear on the right, no wheezing Left chest tube in place, draining serosanguineous fluid Heart- normal rate, regular rhythm; no murmurs Abdomen- normal bowel sounds, nondistended, soft, nontender Extremities- no pretibial edema, no calf tenderness Neuro- alert, oriented x 3; no gross focal neurologic deficits Skin- warm & dry Updated Medication List Medication Instructions Recorded Confirmed Type acetaminophen 500 mg tablet 1,000 mg PO DIRECTED PRN 11/08/23 11/08/23 History (Tylenol Extra Strength) PAIN/FEVER albuterol sulfate 90 mcg/actuation 2 puff inhalation DIRECTED PRN 11/08/23 11/08/23 History aerosol inhaler Shortness Of Breath Or Wheezing budesonide-formoterol HFA 160 1 inh inhalation QID 11/08/23 11/08/23 History mcg-4.5 mcg/actuation aerosol inhaler (Symbicort) ibuprofen 200 mg tablet (Advil) 600 mg PO DIRECTED PRN 11/08/23 11/08/23 History PAIN/FEVER cyanocobalamin (vitamin B-12) 2,000 mcg PO DAILY #30 tabs 11/11/23 Rx 2,000 mcg tablet ferrous sulfate 325 mg (65 mg 325 mg PO BIDM 30 days #60 tabs 11/11/23 Rx iron) tablet,delayed release folic acid 1 mg tablet 1,000 mcg PO DAILY 30 days #30 tabs 11/11/23 Rx Hospital Stay Data Consultations 11/09/23 01:20 ED Decision to Admit Stat 11/09/23 03:14 Consult Pulmonology Routine Diagnostic Imagining Performed Laboratory Results WBC 16.81 K/ul (4.8-10.8) H 11/11/23 07:00 RBC 4.01 M/uL (4.70-6.10) L 11/11/23 07:00 Hgb 12.0 g/dl (14.0-18.0) L 11/11/23 07:00 Hct 34.8 % (42.0-52.0) L 11/11/23 07:00 MCV 86.8 fL (80.0-100.0) 11/11/23 07:00 MCH 29.9 pg (25.0-34.0) 11/11/23 07:00 MCHC 34.5 g/dL (32.0-36.0) 11/11/23 07:00 RDW Std Deviation 43.5 fL (36.4-46.3) 11/11/23 07:00 RDW Coeff of Jorje 13.7 % (11.5-14.5) 11/11/23 07:00 Plt Count 560 K/uL (130-400) H 11/11/23 07:00 MPV 8.5 fL (9.4-12.4) L 11/11/23 07:00 Immature Gran % (Auto) 0.7 % 11/11/23 07:00 Neut % (Auto) 81.3 % 11/11/23 07:00 Lymph % (Auto) 6.8 % 11/11/23 07:00 [place] % (Auto) 8.5 % 11/11/23 07:00 Eos % (Auto) 2.5 % 11/11/23 07:00 Baso % (Auto) 0.2 % 11/11/23 07:00 Reticulocyte % (Auto) 0.81 % (0.50-2.00) 11/09/23 05:25 Neut # (Auto) 13.67 K/uL (1.40-6.50) H 11/11/23 07:00 Lymph # (Auto) 1.15 K/uL (1.20-3.40) L 11/11/23 07:00 [place] # (Auto) 1.43 K/uL (0.11-0.59) H 11/11/23 07:00 Eos # (Auto) 0.42 K/uL (0.00-0.50) 11/11/23 07:00 Baso # (Auto) 0.03 K/uL (0.00-0.20) 11/11/23 07:00 Reticulocyte # 0.030 10^6/uL (0.020-0.100) 11/09/23 05:25 Immature Gran # (Auto) 0.11 K/uL (0.01-0.20) 11/11/23 07:00 Toxic Granulation 1+ 11/10/23 08:59 Dohle Bodies 1+ 11/10/23 08:59 Polychromasia 1+ 11/10/23 08:59 Echinocytes 1+ 11/10/23 08:59 PT 13.0 Seconds (9.0-12.0) H 11/09/23 17:30 INR 1.2 (0.9-1.1) H 11/09/23 17:30 APTT 36 Seconds (21-31) H 11/09/23 17:30 PTT Ratio 1.3 11/09/23 17:30 ABG pH 7.45 (7.35-7.45) 11/10/23 00:49 ABG pCO2 37 mmHg (35-46) 11/10/23 00:49 ABG pO2 78 mmHg (80-95) L 11/10/23 00:49 ABG HCO3 26 mmol/L (19-24) H 11/10/23 00:49 ABG O2 Saturation 96.7 % (90-95) H 11/10/23 00:49 ABG Base Excess 1.8 mEq/L (-9-1.8) 11/10/23 00:49 Emmanuel Test Pos (Pos) 11/10/23 00:49 Oxygen Given 4L 11/10/23 00:49 Sodium 134 mmol/L (136-145) L 11/11/23 07:00 Potassium 4.3 mmol/L (3.5-5.1) 11/11/23 07:00 Chloride 100 mmol/L (98-107) 11/11/23 07:00 Carbon Dioxide 28 mmol/L (21-32) 11/11/23 07:00 Anion Gap 6 (3-11) 11/11/23 07:00 BUN 18 mg/dl (6-23) 11/11/23 07:00 Creatinine 0.57 mg/dl (0.6-1.4) L 11/11/23 07:00 Est Cr Clr Drug Dosing 130.0 ml/min 11/11/23 07:00 Est GFR ( Amer) 140.7 ml/min 11/11/23 07:00 Est GFR (Non-Af Amer) 121.4 ml/min 11/11/23 07:00 BUN/Creatinine Ratio 31.6 (10-20) H 11/11/23 07:00 Glucose 95 mg/dl (70-99(Fasting)) 11/11/23 07:00 Estimat Average Glucose 128 mg/dl 11/08/23 23:05 Hemoglobin A1c 6.1 % (4.5-5.6) H 11/08/23 23:05 Lactate 1.8 mmol/L (0.4-2.0) 11/09/23 00:16 Calcium 8.1 mg/dl (8.6-10.3) L 11/11/23 07:00 Magnesium 2.0 mg/dl (1.7-2.4) 11/08/23 23:05 Iron < 10 mcg/dl (35-175) L 11/09/23 05:25 Transferrin 119 mg/dl (200-360) L 11/09/23 05:25 Ferritin 852.7 ng/ml (8-388) H 11/09/23 05:25 Total Bilirubin 0.3 mg/dl (0.2-1.0) 11/08/23 23:05 AST 7 U/L (13-39) L 11/08/23 23:05 ALT 12 U/L (7-52) 11/08/23 23:05 Alkaline Phosphatase 69 U/L (34-104) 11/08/23 23:05 Troponin I High Sens 15.7 pg/ml (0-20) 11/08/23 23:05 Total Protein 6.1 gm/dl (6.0-8.3) 11/08/23 23:05 Albumin 3.0 gm/dl (3.4-5.0) L 11/08/23 23:05 Globulin 3.1 gm/dl (2.5-4.0) 11/08/23 23:05 Albumin/Globulin Ratio 1.0 (0.9-2) 11/08/23 23:05 Lipase 12 U/L (11-82) 11/08/23 23:05 Vitamin B12 85 pg/ml (180-914) L 11/09/23 05:25 Folate 3.33 ng/ml (>5.38) L 11/09/23 05:25 Procalcitonin 2.68 ng/ml (0-0.5) H 11/08/23 23:05 Urine Color Dark Yellow 11/09/23 00:41 Urine Appearance Clear (Clear) 11/09/23 00:41 Urine pH 5.5 (4.5-7.5) 11/09/23 00:41 Ur Specific [place] > 1.045 (1.000-1.030) H 11/09/23 00:41 Urine Protein 1+ (Negative) H 11/09/23 00:41 Urine Glucose (UA) Negative (Negative) 11/09/23 00:41 Urine Ketones Negative (Negative) 11/09/23 00:41 Urine Blood Negative (Negative) 11/09/23 00:41 Urine Nitrite Negative (Negative) 11/09/23 00:41 Urine Bilirubin Negative (Negative) 11/09/23 00:41 Urine Urobilinogen Negative (Negative) 11/09/23 00:41 Ur Leukocyte Esterase Negative (Negative) 11/09/23 00:41 Urine WBC (Auto) 1-5 /hpf (0-5) 11/09/23 00:41 Urine RBC (Auto) 5-10 /hpf (0-4) H 11/09/23 00:41 U Hyaline Cast (Auto) 1-5 /lpf (0-5) 11/09/23 00:41 U Epithel Cells (Auto) >30 /lpf (0-5) H 11/09/23 00:41 Urine Bacteria (Auto) Negative (Negative) 11/09/23 00:41 Ur Renal Epithelial Cell Not Reportable 11/09/23 00:41 Fluid Neutrophils % 93 % 11/09/23 Unknown Fluid Lymphocytes % 1 % 11/09/23 Unknown Fluid Eosinophils % 1 % 11/09/23 Unknown Fluid Meso/Macro/[place] % 5 % 11/09/23 Unknown Fluid Comment 11/09/23 Unknown Pleural Fluid Source Left Lung 11/09/23 Unknown Pleural Color Straw 11/09/23 Unknown Pleural Appearance Cloudy 11/09/23 Unknown Pleural pH < 7.00 (7.3-7.4) L 11/09/23 Unknown Pleural WBC (Auto) 32946 /uL 11/09/23 Unknown Pleural RBC (Auto) 5000 /uL 11/09/23 Unknown Pleural Total Protein 4.9 gm/dl 11/09/23 Unknown Pleural LDH 2447 U/L 11/09/23 Unknown Pleural Glucose < 10 mg/dl 11/09/23 Unknown Nasal Screen MRSA (PCR) Negative (Negative) 11/09/23 02:44 Adenovirus (PCR) Not Detected (NotDetected) 11/08/23 23:00 B. pertussis DNA (PCR) Not Detected (NotDetected) 11/08/23 23:00 B.parapertussis DNA PCR Not Detected (NotDetected) 11/08/23 23:00 C. pneumoniae DNA (PCR) Not Detected (NotDetected) 11/08/23 23:00 Coronavirus OC43 (PCR) Not Detected (NotDetected) 11/08/23 23:00 Coronavirus HKU1 (PCR) Not Detected (NotDetected) 11/08/23 23:00 Coronavirus 229E (PCR) Not Detected (NotDetected) 11/08/23 23:00 SARS-CoV-2 (PCR) Not Detected (NotDetected) 11/08/23 23:00 Coronavirus NL63 (PCR) Not Detected (NotDetected) 11/08/23 23:00 Human Metapneumovir PCR Not Detected (NotDetected) 11/08/23 23:00 Influenza Type A (PCR) Not Detected (NotDetected) 11/08/23 23:00 Influenza Type B (PCR) Not Detected (NotDetected) 11/08/23 23:00 M. pneumoniae (PCR) Not Detected (NotDetected) 11/08/23 23:00 Parainfluenza 1 (PCR) Not Detected (NotDetected) 11/08/23 23:00 Parainfluenza 2 (PCR) Not Detected (NotDetected) 11/08/23 23:00 Parainfluenza 3 (PCR) Not Detected (NotDetected) 11/08/23 23:00 Parainfluenza 4 (PCR) Not Detected (NotDetected) 11/08/23 23:00 RSV (PCR) Not Detected (NotDetected) 11/08/23 23:00 Entero/Rhino (PCR) Not Detected (NotDetected) 11/08/23 23:00 Impressions Abdomen/Pelvis CT 11/08/23 22:51 Exam(s): CT ABDOMEN + PELVIS With Contrast IV Amt: 119 cc's optiray 320 EXAM: CT Abdomen and Pelvis With Intravenous Contrast CLINICAL HISTORY: Reason for exam: SOB, left flank pain. TECHNIQUE: Axial computed tomography images of the abdomen and pelvis with intravenous contrast. CTDI is 32.04 mGy and DLP is 819.51 mGy-cm. Automated exposure control was utilized for the study. A dose lowering technique was utilized adhering to the principles of ALARA. CONTRAST: Patient received 119 cc's optiray 320 of IV contrast COMPARISON: None. FINDINGS: Lung bases: Left lower lobe consolidation suggestive of atelectasis versus residual infiltrate. Trace right lower lobe atelectasis. Pleural space: Loculated left-sided pleural effusions with small irregular pockets of fluid within the left pleural base and peripheral enhancement, combination of findings concerning for empyema. Cannot exclude neoplasm. Heart: Unremarkable. No cardiomegaly. No significant pericardial effusion. Normal cardiac size. ABDOMEN: Liver: Low-attenuation structure within the anterior aspect of the left liver lobe measuring 9.7 mm, likely liver cyst. Otherwise normal liver. Gallbladder and bile ducts: Unremarkable. No calcified stones. No ductal dilation. Pancreas: Unremarkable. No mass. No ductal dilation. Spleen: Unremarkable. No splenomegaly. Adrenals: Unremarkable. No mass. Kidneys and ureters: Unremarkable. No solid mass. No hydronephrosis. Stomach and bowel: Several loops of small bowel with mild thickening of the wall, more so along the left upper abdomen. There is fluid within the colon with mild thickening of the wall to the distal sigmoid and descending colon, combination of findings which may indicate enteritis/enterocolitis. No obstruction. PELVIS: Appendix: Nonvisualized appendix with no focal inflammation by the cecum to suggest acute appendicitis. Bladder: Unremarkable. No mass. Reproductive: Unremarkable as visualized. ABDOMEN and PELVIS: Intraperitoneal space: Unremarkable. No free air. No significant fluid collection. Bones/joints: Degenerative disease at L4-L5 with anterolisthesis of L4 on L5 (10 mm) along with bilateral pars defect of L4. Minor spondylosis of the remainder of the spine. No acute fracture. No dislocation. Soft tissues: Unremarkable. Vasculature: Unremarkable. No abdominal aortic aneurysm. Lymph nodes: Unremarkable. No enlarged lymph nodes. IMPRESSION: 1. Loculated left-sided pleural effusions as described which may indicate empyema, differential diagnosis including neoplasm. Further evaluation with CT chest recommended if clinically indicated. 2. Cannot exclude mild enteritis/enterocolitis with no bowel obstruction. 3. 9.7 mm liver cyst, otherwise unremarkable abdominal viscera. Electronically signed by: Meghann Mcnair MD 11/09/23 01:48 AM Chest CTA 11/08/23 22:51 Exam(s): CTA CHEST IV Amt: 119 cc's of optiray 320 EXAM: CT Angiography Chest With Intravenous Contrast CLINICAL HISTORY: Reason for exam: SOB, left flank pain. TECHNIQUE: Axial computed tomographic angiography images of the chest with intravenous contrast. CTDI is 12.2 mGy and DLP is 820 mGy-cm. Automated exposure control was utilized for the study. A dose lowering technique was utilized adhering to the principles of ALARA. MIP reconstructed images were created and reviewed. COMPARISON: Chest x-ray from November 08, 2023 FINDINGS: Pulmonary arteries: The pulmonary arterial tree is well opacified with contrast. No pulmonary embolism is identified. Aorta: The thoracic aorta is nondilated. There is no aneurysm or dissection. Lungs: There is bronchial wall thickening centrally in both lungs as well as a small amount of bronchial plugging extending to the left lower lobe suggesting bronchitis and pneumonia. No mass. Pleural space: Multiloculated left pleural effusion measuring 3-4 cm thick over the mid to lower left hemithorax. There is consolidation of the left lower lobe and portions of the lingula consistent with atelectasis or pneumonia. Heart: Unremarkable. No cardiomegaly. No significant pericardial effusion. No evidence of RV dysfunction. Bones/joints: No acute fracture. No dislocation. Soft tissues: Unremarkable. Lymph nodes: Unremarkable. No enlarged lymph nodes. IMPRESSION: 1. Multiloculated left pleural effusion measuring 3-4 cm thick over the mid to lower left hemithorax. There is consolidation of the left lower lobe and portions of the lingula consistent with atelectasis or pneumonia. 2. There is bronchial wall thickening centrally in both lungs as well as a small amount of bronchial plugging extending to the left lower lobe suggesting bronchitis and pneumonia. 3. The thoracic aorta is nondilated. There is no aneurysm or dissection. 4. The pulmonary arterial tree is well opacified with contrast. No pulmonary embolism is identified. Electronically signed by: Will John MD 11/09/23 01:09 AM Chest X-Ray 11/11/23 08:00 XR chest 1V portable HISTORY: Chest tube ? MIST 2 protocol COMPARISON: Chest 11/10/2023. FINDINGS: Left basilar chest tube is unchanged in position. Hazy appearance to left hemithorax has progressed and suggest increased in size in the loculated pleural effusion. The patient's left apical pneumothorax is not well visualized due to the suspected increase in size in the loculated pleural effusion. No right-sided pneumothorax. The heart is stable in size. Small patchy densities within the right medial lung base persist. IMPRESSION: 1. A left basilar chest tube is unchanged in position. 2. Hazy appearance to left hemithorax has progressed and is consistent with increase in size in a loculated left pleural effusion. 3. The patient's left apical pneumothorax is not well visualized due to the suspected increase in size in the loculated pleural effusion. ACT 112: Negative or not required by law. Electronically signed by: Gary Tipton M.D. 11/11/2023 8:[address] 11/11/23 09:00 CT chest diagnostic wo con CLINICAL HISTORY: f/u from CXR - effusion TECHNIQUE: Multidetector row helical CT of the chest was performed. Coronal and sagittal reformations were obtained. Automated dose lowering techniques and/or adjustment according to patient size were utilized for this exam. CT DOSE: 479.46 mGy.cm Comparison: Comparison is made to CT chest 11/09/2023 and chest radiograph 11/11/2023 FINDINGS: Lungs and pleura: Left loculated hydropneumothorax is seen. A left chest tube is seen. There is a small right pleural effusion. Underlying atelectasis is seen bilaterally, left greater than right. Groundglass opacities are seen, similar to prior exam, as well as a 7 mm nodule in the right upper lobe (series 4 image 53). Heart and pericardium: Heart size is normal. No pericardial effusion. Vessels: Unremarkable. Mediastinum and stevan: Unremarkable. Chest wall and lower neck: Unremarkable. Abdomen: Unremarkable. Bones: Degenerative changes in the thoracic spine. IMPRESSION: 1. Interval enlargement of loculated left pleural effusion with interval development of pneumothorax status post chest tube placement. Small right pleural effusion is enlarged from prior exam. Underlying atelectasis has commensurately increased. 2. Groundglass and nodular opacities may represent infectious/inflammatory process. ACT 112: Negative or not required by law. Electronically signed by: Je Gleason M.D. 11/11/2023 11:19 AM Pending Results Patient Have Any Pending Studies at Discharge: Yes Discharge Instructions Given to Patient (Per Discharging Provider) Please refer to accompanying hospital discharge summary for further details. Total Time Total Time Spent Total Time Spent (In Minutes): >30 minutes
[2023-11-11] MEDS: CYANOCOBALAMIN (B-12) 500 MCG TABLET PO SCH (13:55)
[2023-11-11] MEDS: FOLIC ACID 1 MG TAB PO SCH (14:54)
== END 2023-11-11 16:35 | disposition short-term general hospital (02) | DRG 871 ==
LOC: ED 22:27 → EDINP 11-09 02:10 → 2N 11-09 03:15